=== PATIENT | female | born 1960 | race Caucasian/White ===

== ENCOUNTER → 2017-08-01 | Outpatient (REF) | payer BC ==
[2017-08-01 14:41] LABS: VITAMIN B12 LEVEL 686 PG/ML (247-911)
== END ==
LOC: M LAB REF 13:49
DX: D64.9 Anemia, unspecified (principal)
CPT/HCPCS: 82607

== ENCOUNTER → 2018-02-24 | Outpatient (REF) | payer BC ==
[2018-02-24 19:04] LABS: VITAMIN B12 LEVEL 485 PG/ML (247-911)
== END ==
LOC: M LAB REF 18:29
DX: D64.9 Anemia, unspecified (principal)

== ENCOUNTER 2018-09-29 14:54 | Emergency (ER) | payer BC, SELFPAY ==
[~2018-09-29] VITALS: Ht 165.1 cm; Wt 71.8 kg
[~2018-09-29 14:54] MED LIST: /MESA40TAB PO; ASPI81TA85 PO; CARV6.25 PO; LEVO125T3 PO; LISI2.5T PO; MULTTAB24 PO; NITR0.4D6 SL; PRED1TA PO; TYLE325T5 PO; atorvastatin PO
[2018-09-29] MEDS ORDERED: LOSA50TA88 PO (15:11)
[2018-09-29] MEDS ORDERED: LEVO175T19 PO (15:11)
[2018-09-29] MEDS ORDERED: ATOR80TA59 PO (15:11)
[2018-09-29 15:21] LABS: VENOUS BASE EXCESS 0.3 (-2.0-2.0); VENOUS HCO3 24.5 MEQ/L (23.0-27.0); VENOUS O2 SATURATION 79.6 % (60.0-80.0); VENOUS PARTIAL PRESSURE CO2 38.6 mmHg (38.0-50.0); VENOUS PARTIAL PRESSURE O2 43.2 mmHg (30.0-50.0); VENOUS PH 7.421 UNITS (7.330-7.430); VENOUS STANDARD HCO3 24.3 MEQ/L; VENOUS TOTAL CO2 25.7 MEQ/L (24.0-28.0)
[2018-09-29 15:21] LABS: BASO % 0.7 % (0.0-1.0); EOS # 0.1 10^3/uL (0.0-0.50); EOS % 2.4 % (0.0-3.0); HEMATOCRIT 39.6 % (36.0-47.0); HEMOGLOBIN 13.3 g/dl (12.0-15.5); LYMPH # 1.7 10^3/uL (1.5-4.5); LYMPH % 31.4 % (24.0-44.0); MEAN CORPUSCULAR HGB CONC 33.6 g/dl (32.0-36.5); MEAN CORPUSCULAR VOLUME 101.3 fl (80.0-96.0); MONO # 0.5 10^3/uL (0.0-0.8); MONO % 9.1 % (0.0-5.0); NEUTROPHILS % 56.2 % (36.0-66.0); PLATELET COUNT, AUTOMATED 247 10^3/uL (150-450); RED BLOOD COUNT 3.91 10^6/uL (4.00-5.40); WHITE BLOOD COUNT 5.4 10^3/uL (4.0-10.0)
[2018-09-29 15:54] LABS: ALBUMIN 4.3 GM/DL (3.2-5.2); ALT/SGPT 122 U/L (12-78); BILIRUBIN,DIRECT 0.1 MG/DL (0.0-0.2); BILIRUBIN,TOTAL 0.5 MG/DL (0.2-1.0); BLOOD UREA NITROGEN 15 MG/DL (7-18); CALCIUM LEVEL 9.2 MG/DL (8.5-10.1); CARBON DIOXIDE LEVEL 29 MEQ/L (21-32); CHLORIDE LEVEL 107 MEQ/L (98-107); CPK CREATINE PHOSPHOKINASE 74 U/L (26-192); CREATININE FOR GFR 0.76 MG/DL (0.55-1.30); GLOMERULAR FILTRATION RATE > 60.0 (>51); GLUCOSE, FASTING 113 MG/DL (70-100); INFLUENZA A AMPLIFICATION NEGATIVE (NEGATIVE); INFLUENZA B AMPLIFICATION NEGATIVE (NEGATIVE); MB/CK RELATIVE INDEX 2.03 (< OR =4); NT-PRO BNP 65 PG/ML (<125); POTASSIUM SERUM 3.9 MEQ/L (3.5-5.1); SODIUM LEVEL 142 MEQ/L (136-145); THYROID STIMULATING HORMONE 0.924 uIU/ML (0.358-3.740); TOTAL PROTEIN 8.1 GM/DL (6.4-8.2); TROPONIN I < 0.02 NG/ML (< 0.10)
[2018-09-29] MEDS ORDERED: ISOVUE-370 76% 125ML VIAL (Q9967 PER ML) As Ordered ONE (16:02)
--- NOTE | 2018-09-29 17:16 | REP ---
CHEST: Single view. COMPARISON: 04/07/2014. There is no evidence of acute infiltrate. No pleural effusion is seen. The heart is normal in size. The mediastinal silhouette is unremarkable. The visualized osseous structures are intact. IMPRESSION: No acute pulmonary disease. Electronically Signed by Eran Caicedo MD 10/01/2018 12:23 P
--- NOTE | 2018-09-29 18:33 | REP ---
CT ANGIOGRAM CHEST: TECHNIQUE: Axial contrast enhanced images from the thoracic inlet to the upper abdomen using 100 mL Isovue 370 intravenous contrast material with multiplanar reformations. There is no CT evidence of pulmonary embolism. There is no thoracic aortic aneurysm or dissection. The heart is normal in size. There is no pleural or pericardial effusion. There is no mediastinal, hilar, or chest wall lymphadenopathy. There is a moderate sized hiatal hernia. Mild scattered fibrotic changes are seen particularly in the lower lobes bilaterally. There are mild degenerative changes of the spine. IMPRESSION: No CT evidence of pulmonary embolism. Moderate sized hiatal hernia. Mild bibasilar interstitial fibrosis. Electronically Signed by Eran Caicedo MD 10/01/2018 12:24 P
[2018-09-29 21:48] LABS: CPK CREATINE PHOSPHOKINASE 62 U/L (26-192); TROPONIN I < 0.02 NG/ML (< 0.10)
[2018-09-29 22:00] VITALS: BP 139/93
--- NOTE | 2018-09-30 08:47 | ECGEPIP ---
Stationary ECG Study [facility] - ED Test Date: 2018-09-29 Pat Name: IKER POLLARD Department: Room: - Gender: F Core Filer: : 1960 Requested By: Radha Mclaughlin Order Number: [id number] Reading MD: Jorge Duarte Measurements Intervals [place] Rate: 94 P: 26 [place]: 148 QRS: -16 QRSD: 86 T: -4 QT: 347 QTc: 434 Interpretive Statements SINUS RHYTHM LOW QRS VOLTAGE IN PRECORDIAL LEADS MODERATE VOLTAGE CRITERIA FOR LVH, CONSIDER NORMAL VARIANT POSSIBLE SEPTAL MYOCARDIAL INFARCTION, OF INDETERMINATE AGE SIMILAR TO 04/07/14 Electronically Signed On 09-30-2018 8:47:49 EDT by Jorge Duarte
--- NOTE | 2018-09-30 08:54 | ECGEPIP ---
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
== END 2018-09-29 22:22 | disposition home or self-care (01) ==
LOC: M ED 14:54
DX: R06.00 Dyspnea, unspecified (principal); K44.9 Diaphragmatic hernia without obstruction or gangrene; I25.10 Atherosclerotic heart disease of native coronary artery without angina pectoris; I25.2 Old myocardial infarction; E78.5 Hyperlipidemia, unspecified; E07.9 Disorder of thyroid, unspecified; K51.90 Ulcerative colitis, unspecified, without complications; Z95.5 Presence of coronary angioplasty implant and graft; Z87.891 Personal history of nicotine dependence; Z79.82 Long term (current) use of aspirin; Z79.899 Other long term (current) drug therapy
CPT/HCPCS: 71045; 71275; 80048; 80076; 82550; 82553; 82803; 83605; 83880; 84443; 84484; 85025; 87040; 87502; 93005; 93041; 99285; Q9967

== ENCOUNTER → 2019-02-17 | Outpatient (REF) | payer SELFPAY ==
[~2019-02-17] MED LIST changes: +ATOR80TA59 PO; +LEVO175T19 PO; +LOSA50TA88 PO
== END ==
LOC: M LAB REF 13:30
PROVIDERS: ATTEND Internal Medicine
DX: D52.8 Other folate deficiency anemias (principal)

== ENCOUNTER → 2019-08-13 | Outpatient (REF) | payer SELFPAY ==
[2019-08-13 13:21] LABS: BLOOD UREA NITROGEN 20 MG/DL (7-18); CALCIUM LEVEL 10.1 MG/DL (8.5-10.1); CARBON DIOXIDE LEVEL 25 MEQ/L (21-32); CHLORIDE LEVEL 103 MEQ/L (98-107); CHOLESTEROL LEVEL 213 MG/DL (<200); CHOLESTEROL RISK RATIO 3.736 (<5); CREATININE FOR GFR 0.99 MG/DL (0.55-1.30); GLOMERULAR FILTRATION RATE > 60.0 (>51); GLUCOSE, FASTING 95 MG/DL (70-100); HDL CHOLESTEROL 57 MG/DL (>40); LDL CHOLESTEROL 139 MG/DL (<100); NON-HDL-C 156 MG/DL; POTASSIUM SERUM 4.1 MEQ/L (3.5-5.1); SODIUM LEVEL 139 MEQ/L (136-145); THYROID STIMULATING HORMONE 0.668 uIU/ML (0.358-3.740); TRIGLYCERIDES LEVEL 86 MG/DL (<150)
== END ==
LOC: M LAB REF 12:24
PROVIDERS: ATTEND Internal Medicine
DX: I10 Essential (primary) hypertension (principal); E78.5 Hyperlipidemia, unspecified; E03.9 Hypothyroidism, unspecified

== ENCOUNTER → 2020-01-25 | Outpatient (REF) | payer MEDICAID, SELFPAY ==
[~2020-01-25] MED LIST changes: +ECOT81TA5 PO; +MULTCAP PO; +PRIL20TA2 PO; +SULF1TAB30 PO
== END ==
LOC: M LAB REF 12:03
PROVIDERS: ATTEND Internal Medicine
DX: E03.9 Hypothyroidism, unspecified (principal)

== ENCOUNTER → 2020-03-03 | Outpatient (CLI) | payer OTHER, SELFPAY | LOC: M LABSMTC 11:32 | PROVIDERS: ATTEND Anesthesiology | DX: Z01.818 Encounter for other preprocedural examination (principal); Z53.9 Procedure and treatment not carried out, unspecified reason; Z11.59 Encounter for screening for other viral diseases ==

== ENCOUNTER 2020-03-08 09:07 | Day surgery (SDC) | payer OTHER ==
[~2020-03-08] VITALS: Ht 165.1 cm; Wt 83.0 kg
[2020-03-08] MEDS ORDERED: MIDAZOLAM INJ 2MG/2ML VIAL (J2250 PER 1MG) As Ordered ONE (09:47)
[2020-03-08] MEDS ORDERED: fentaNYL 100 MCG/2 ML INJECTION (J3010) As Ordered ONE (09:48)
[2020-03-08] MEDS ORDERED: LIDOCAINE 2% 100MG/5ML SDV (FOR ANES.) As Ordered ONE (09:50)
[2020-03-08] MEDS ORDERED: ceFAZolin 1GM VIAL (J0690 PER 500MG) As Ordered ONE (09:53)
[2020-03-08] MEDS ORDERED: BUPIVACAINE/EPIN 0.25% 30 ML VIAL As Ordered ONE (10:53)
[2020-03-08] MEDS ORDERED: ONDANSETRON 4MG/2ML VIAL As Ordered ONE (11:46)
[2020-03-08] MEDS ORDERED: propofoL 200 MG/20 ML VIAL As Ordered ONE (11:48)
[2020-03-08 12:20] VITALS: BP 123/79
--- NOTE | 2020-04-05 14:33 | ECGEPIP ---
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
--- NOTE | 2020-05-13 14:07 | RO ---
DATE OF OPERATION: 03/08/2020 PREOPERATIVE DIAGNOSIS: Lipoma, back. POSTOPERATIVE DIAGNOSIS: Lipoma, back (8 x 6 CM). PROCEDURE: Excision of lipoma/subcutaneous mass, back/trunk. SURGEON: Larry Chris MD SEWER PIPE OFFBEARER: ANESTHESIA: IV sedation plus local. ESTIMATED BLOOD LOSS: Minimal. FLUIDS: Crystalloid. BRIEF PROCEDURE SUMMARY: The patient was brought to the operating room and was given IV sedation, and was prepped and draped in the usual sterile fashion. Local lidocaine mixed with epinephrine as well as Marcaine was infiltrated into the skin and subcutaneous tissues surrounding the lipomatous lesion. A transverse incision was made over the top of this lesion and a combination of blunt and sharp dissection as well as electrocautery was used to dissect down to the lipomatous lesion. The lipomatous lesion was from the surrounding tissues using a combination of blunt dissection as well as sharp dissection and electrocautery on some of the small bridging vessels, and eventually this was removed in its entirety. The subcutaneous tissue then was brought together with 2-0 Vicryl. 3-0 Vicryl was used to approximate dermis, 4-0 Vicryl was used to approximate the skin. Steri-Strips and a dry, sterile dressing were applied. The patient was awakened from her sedation and brought to the recovery room awake and alert, and hemodynamically stable. Sponge and needle counts correct x2. MTDD
== END 2020-03-08 12:53 | disposition home or self-care (01) ==
LOC: M SDC 09:07
PROVIDERS: ATTEND Surgery
DX: D17.1 Benign lipomatous neoplasm of skin and subcutaneous tissue of trunk (principal); I10 Essential (primary) hypertension; I25.10 Atherosclerotic heart disease of native coronary artery without angina pectoris; Z98.61 Coronary angioplasty status; I25.2 Old myocardial infarction; E03.9 Hypothyroidism, unspecified; K21.9 Gastro-esophageal reflux disease without esophagitis; Z79.899 Other long term (current) drug therapy
CPT/HCPCS: 11406; 88304; 93005; J2250; J2405; J3010

== ENCOUNTER → 2020-05-19 | Outpatient (CLI) | payer OTHER | LOC: M LABSMTC 11:12 | PROVIDERS: ATTEND Anesthesiology | DX: Z01.812 Encounter for preprocedural laboratory examination (principal); Z20.828 Contact with and (suspected) exposure to other viral communicable diseases | CPT/HCPCS: C9803; U0003 ==

== ENCOUNTER 2020-05-24 08:50 | Day surgery (SDC) | payer OTHER ==
[~2020-05-24] VITALS: Ht 162.6 cm; Wt 80.7 kg
[~2020-05-24 08:50] MED LIST changes: +LIDOCAINE 2% 100MG/5ML SDV (FOR ANES.) As Ordered ONE; +NS 1,000 ML IV ONE; +propofoL 200 MG/20 ML VIAL As Ordered ONE
--- NOTE | 2020-05-24 10:58 | ROOR ---
Patient Name: Paloma Johnson Procedure Date: 05/24/2020 10:07 AM Date of : 1960 Age: 59 Room: [facility] Gender: Female Note Status: Finalized Procedure: Colonoscopy Indications: Disease activity assessment of left-sided chronic ulcerative colitis, Assess therapeutic response to therapy of left-sided chronic ulcerative colitis Providers: Sher Myles MD Referring MD: Roberta Lu DO Requesting Provider: Medicines: Monitored Anesthesia Care Complications: No immediate complications. Procedure: Pre-Anesthesia Assessment: - Prior to the procedure, a History and Physical was performed, and patient medications and allergies were reviewed. The patient is competent. The risks and benefits of the procedure and the sedation options and risks were discussed with the patient. All questions were answered and informed consent was obtained. Patient identification and proposed procedure were verified by the physician, the nurse and the anesthesiologist in the procedure room. Mental Status Examination: alert and oriented. Airway Examination: normal oropharyngeal airway and neck mobility. Respiratory Examination: clear to auscultation. CV Examination: normal. Prophylactic Antibiotics: The patient does not require prophylactic antibiotics. Prior Anticoagulants: The patient has taken no previous anticoagulant or antiplatelet agents. ASA Grade Assessment: II - A patient with mild systemic disease. After reviewing the risks and benefits, the patient was deemed in satisfactory condition to undergo the procedure. The anesthesia plan was to use monitored anesthesia care (MAC). Immediately prior to administration of medications, the patient was re-assessed for adequacy to receive sedatives. The heart rate, respiratory rate, oxygen saturations, blood pressure, adequacy of pulmonary ventilation, and response to care were monitored throughout the procedure. The physical status of the patient was re-assessed after the procedure. The Colonoscope was introduced through the anus and advanced to the terminal ileum, with identification of the appendiceal orifice and IC valve. The colonoscopy was performed without difficulty. The patient tolerated the procedure well. The quality of the bowel preparation was good. The terminal ileum, ileocecal valve, appendiceal orifice, and rectum were photographed. Scope insertion time was 3 minutes. Scope withdrawal time was 11 minutes. The total duration of the procedure was 14 minutes. Findings: The perianal and digital rectal examinations were normal. The terminal ileum appeared normal. Three sessile polyps were found in the transverse colon and ascending colon. The polyps were 3 to 5 mm in size. These polyps were removed with a cold biopsy forceps. Resection and retrieval were complete. Verification of patient identification for the specimen was done by the physician and nurse using the patient's name, date and medical record number. Estimated blood loss was minimal. A continuous area of nonbleeding ulcerated mucosa with stigmata of recent bleeding was present from rectum to transverse colon. Eight biopsies were obtained with cold forceps for histology, ulcerative colitis surveillance and diagnostic purposes in the right colon, as well as eight biopsies in the left colon. Retroflexion in the rectum was not performed due to anatomy. Impression: - The examined portion of the ileum was normal. - Three 3 to 5 mm polyps in the transverse colon and in the ascending colon, removed with a cold biopsy forceps. Resected and retrieved. - Mucosal ulceration. - Biopsies performed in the right colon and in the left colon. Recommendation: - Patient has a contact number available for emergencies. The signs and symptoms of potential delayed complications were discussed with the patient. Return to normal activities tomorrow. Written discharge instructions were provided to the patient. - High fiber diet. - Continue present medications. - Await pathology results. - Repeat colonoscopy in 1 year to assess disease activity and to evaluate the response to therapy. - Return to GI clinic in [facility] (address [address], [address], [place], [facility]) in 4 -- 6 weeks. Please call GI clinic @ [phone] for apppointment date and time. - Return to primary care physician. Sher Myles MD Sher Myles MD 05/24/2020 10:57:38 AM Electronically signed by Sher Myles MD Number of Addenda: 0 Note Initiated On: 05/24/2020 10:07 AM Estimated Blood Loss: Estimated blood loss was minimal.
[2020-05-24 11:10] VITALS: BP 179/102
== END 2020-05-24 11:15 | disposition home or self-care (01) ==
LOC: M OPP 08:50
PROVIDERS: ATTEND Internal Medicine Gastroenterology
DX: K63.5 Polyp of colon (principal); K51.50 Left sided colitis without complications; Z09 Encounter for follow-up examination after completed treatment for conditions other than malignant neoplasm; I25.2 Old myocardial infarction; Z79.82 Long term (current) use of aspirin; Z79.899 Other long term (current) drug therapy; Z80.0 Family history of malignant neoplasm of digestive organs; Z87.891 Personal history of nicotine dependence

== ENCOUNTER → 2020-07-11 | Outpatient (CLI) | payer OTHER ==
[~2020-07-11] MED LIST changes: -LIDOCAINE 2% 100MG/5ML SDV (FOR ANES.) As Ordered ONE; -NS 1,000 ML IV ONE; -propofoL 200 MG/20 ML VIAL As Ordered ONE
[2020-07-11 13:33] LABS: BASO % 0.7 % (0.0-1.0); EOS # 0.2 10^3/uL (0.0-0.5); EOS % 3.1 % (0.0-3.0); HEMATOCRIT 36.4 % (36.0-47.0); HEMOGLOBIN 12.3 g/dl (12.0-15.5); LYMPH # 1.4 10^3/uL (1.5-5.0); LYMPH % 23.1 % (24.0-44.0); MEAN CORPUSCULAR HEMOGLOBIN 36.4 pg (27.0-33.0); MEAN CORPUSCULAR HGB CONC 33.8 g/dl (32.0-36.5); MEAN CORPUSCULAR VOLUME 107.7 fl (80.0-96.0); MONO # 0.3 10^3/uL (0.0-0.8); MONO % 5.4 % (0.0-5.0); NEUTROPHILS # 4.1 10^3/uL (1.5-8.5); NEUTROPHILS % 67.4 % (36.0-66.0); PLATELET COUNT, AUTOMATED 290 10^3/uL (150-450); RED BLOOD COUNT 3.38 10^6/uL (4.00-5.40); WHITE BLOOD COUNT 6.1 10^3/uL (4.0-10.0)
[2020-07-11 13:53] LABS: ERYTHROCYTE SEDIMENTATION RATE 29 mm/hr (0-30)
[2020-07-11 14:08] LABS: ALT/SGPT 89 U/L (12-78); BILIRUBIN,DIRECT 0.2 MG/DL (0.0-0.2); BILIRUBIN,TOTAL 0.6 MG/DL (0.2-1.0); BLOOD UREA NITROGEN 20 MG/DL (7-18); CALCIUM LEVEL 9.6 MG/DL (8.5-10.1); CARBON DIOXIDE LEVEL 26 MEQ/L (21-32); CHLORIDE LEVEL 106 MEQ/L (98-107); GLOMERULAR FILTRATION RATE > 60.0 (>51); GLUCOSE, FASTING 90 MG/DL (70-100); POTASSIUM SERUM 4.2 MEQ/L (3.5-5.1); SODIUM LEVEL 139 MEQ/L (136-145); TOTAL PROTEIN 7.7 GM/DL (6.4-8.2)
[2020-07-11 14:23] LABS: HEPATITIS B SURFACE ANTIGEN NEGATIVE (NEGATIVE)
[2020-07-11 14:51] LABS: HEPATITIS C VIRUS ABY INDEX 0.2 INDEX (<0.8)
[2020-07-13 16:16] LABS: ANCA-ATYPICAL <1:20 titer (Neg:<1:20); ANTI-SACCHAROMYCES CEREV. IgA <20.0 Units (0.0-24.9); ANTI-SACCHAROMYCES CEREV. IgG <20.0 Units (0.0-24.9); CYTOPLASMIC NEUTROP AB ANCA-C <1:20 titer (Neg:<1:20); HEPATITIS B CORE ANTIBODY IGG Negative (Negative); PERINUCLEAR AB ANCA-P <1:20 titer (Neg:<1:20)
== END ==
LOC: M LAB 12:38
PROVIDERS: ATTEND Internal Medicine Gastroenterology
DX: K51.911 Ulcerative colitis, unspecified with rectal bleeding (principal)

== ENCOUNTER → 2020-07-18 | Outpatient (REF) | payer OTHER | LOC: M LAB REF 13:26 | PROVIDERS: ATTEND Internal Medicine Gastroenterology | DX: K51.911 Ulcerative colitis, unspecified with rectal bleeding (principal) ==

== ENCOUNTER → 2020-08-24 | Outpatient (REF) | payer OTHER | LOC: M LAB REF 15:16 | PROVIDERS: ATTEND Internal Medicine | DX: D64.9 Anemia, unspecified (principal) ==

== ENCOUNTER → 2020-10-12 | Outpatient (REF) | payer OTHER | LOC: M SFHCWAGY 13:55 | PROVIDERS: ATTEND Advanced Practice Midwife | DX: Z12.4 Encounter for screening for malignant neoplasm of cervix (principal); Z01.419 Encounter for gynecological examination (general) (routine) without abnormal findings; Z77.9 Other contact with and (suspected) exposures hazardous to health ==

== ENCOUNTER → 2020-10-20 | Outpatient (CLI) | payer OTHER ==
--- NOTE | 2020-10-20 10:26 | REP ---
INDICATION: Z12.31 SCREENING MAMMO. COMPARISON: None. TECHNIQUE: MLO and CC views bilateral breasts with tomosynthesis. FINDINGS: Moderate fibroglandular tissue is seen bilaterally. A smoothly marginated 1 cm nodule is seen at the 6 o'clock position of the left breast. I see no other evidence of mass or architectural distortion. No clustered microcalcifications are seen. The Volpara volumetric breast density pattern is B. IMPRESSION: BIRADS/ACR category 0, incomplete. There is a smoothly marginated 1 cm nodule at 6 o'clock left breast. Recommend spot compression views and ultrasound to further evaluate. This patient's Tyrer-Cuzick lifetime breast cancer risk assessment score is 14.8%. This mammogram was interpreted with the aid of an FDA-approved computer-aided detection system. The patient states she had a clinical breast exam in September 2020. The patient letter being requested is M0. RECOMMENDATION: Recommend spot compression views and ultrasound left breast as discussed above. <Electronically signed by Eran Caicedo > 10/20/20 102
== END ==
LOC: M WHC 09:01
PROVIDERS: ATTEND Advanced Practice Midwife
DX: Z12.31 Encounter for screening mammogram for malignant neoplasm of breast (principal); R92.8 Other abnormal and inconclusive findings on diagnostic imaging of breast

== ENCOUNTER → 2020-10-26 | Outpatient (CLI) | payer OTHER ==
--- NOTE | 2020-10-26 13:24 | REP ---
INDICATION: ADDITIONAL VIEWS LT BREAST; ADDITIONAL VIEW LT BREAST. Comparison mammography 20 October 2020 was BI-RADS category 0, incomplete, due to a smoothly marginated 1 cm nodule seen at 6 o'clock position in the left breast. Diagnostic imaging was recommended. COMPARISON: Comparison mammography 20 October 2020. TECHNIQUE: Magnified focal spot-compression CC, mL, and MLO views of the left breast are obtained. Targeted left breast sonography is performed. This mammogram was interpreted with the aid of an FDA-approved computer-aided detection system. FINDINGS: On mammography, magnified focal spot-compression images demonstrate that the well marginated 10 mm nodule persists inferiorly in the left breast at approximately the 7 o'clock position. Fibroglandular elements are seen. No other significant mammographic finding. The Volpara volumetric breast density pattern is b. Targeted ultrasound: Targeted left breast sonography is performed. The left breast is scanned from the 5:00 to 9:00 positions. Heterogeneous fibroglandular background echotexture is seen. There is a 9 mm sonographically simple cyst in the 6 o'clock position which is felt to account for the mammographic opacity. This is located 5.4 cm from nipple. No other significant sonographic finding. IMPRESSION: BIRADS/ACR category 2 benign left breast mammographic and sonographic findings. Simple cyst seen at 6 o'clock. This patient's Tyrer-Cuzick lifetime breast cancer risk assessment score is 14.8%. RECOMMENDATION: Repeat screening mammography recommended 1 year (for women over 40). The patient letter being requested is M1. <Electronically signed by Ba Nath > 10/26/20 0649
== END ==
LOC: M WHC 12:03
PROVIDERS: ATTEND Advanced Practice Midwife
DX: Z12.31 Encounter for screening mammogram for malignant neoplasm of breast (principal)

== ENCOUNTER 2021-05-05 12:30 | Inpatient (IN) | payer OTHER ==
[~2021-05-05] VITALS: Ht 165.1 cm; Wt 80.7 kg
[2021-05-05] MEDS ORDERED: HYDR12CA PO (12:45)
[2021-05-05 13:16] LABS: BASO % 0.1 % (0.0-1.0); HEMATOCRIT 37.3 % (36.0-47.0); HEMOGLOBIN 12.4 g/dl (12.0-15.5); LYMPH # 0.6 10^3/uL (1.5-5.0); MEAN CORPUSCULAR HEMOGLOBIN 34.2 pg (27.0-33.0); MEAN CORPUSCULAR HGB CONC 33.2 g/dl (32.0-36.5); MEAN CORPUSCULAR VOLUME 102.8 fl (80.0-96.0); MONO # 0.3 10^3/uL (0.0-0.8); NEUTROPHILS # 5.8 10^3/uL (1.5-8.5); NEUTROPHILS % 86.6 % (36.0-66.0); PLATELET COUNT, AUTOMATED 240 10^3/uL (150-450); RED BLOOD COUNT 3.63 10^6/uL (4.00-5.40); WHITE BLOOD COUNT 6.7 10^3/uL (4.0-10.0)
--- OUTSIDE RECORDS SUMMARY | 2021-05-05 13:45 | CCD | Continuity of Care Document ---
Author Author Paloma SABILLON Organization Unknown Address [address] [facility] [address] [place] [address] Phone [phone] Care Team Providers Care Block Greaser Name Role Phone Roberta Sabillon DO AUTM Unavailable Jhon Chairez MD AUTM [phone] Problems Active Problems Provider Date Old myocardial infarction Roberta Sabillon DO Onset: 013 Ulcerative colitis Roberta Sabillon DO Onset: 12/09/2012 Social History Type Date Description Comments Sex Unknown ETOH Use Occasionally consumes alcohol Tobacco Use Start: Unknown End: Unknown Patient is a former smoker 04/2010 QUIT Allergies, Adverse Reactions, Alerts Description No Known Drug Allergies Medications Active Medications SIG Qnty Indications Ordering Provide r Date Lialda 1.2gm Tablets 3 by mouth every day 120tabs Roberta Sabillon DO 01/25/2020 Sulfasalazine 500mg Tablets 1 by mouth twice a day then increase to 2 by mouth twice a day after one week. 120tabs Roberta Sabillon DO 01/25/2020 Atorvastatin Calcium 80mg Tablets Take One Tablet By Mouth Every Day 90tabs Roberta Sabillon DO 2019 Losartan Potassium 100mg Tablets Take One Tablet By Mouth Every Day 90tabs Roberta Sabillon DO 2019 Hydrochlorothiazide 12.5mg Capsule s Take One Capsule By Mouth Every Day 90caps Roberta Sabillon DO 0 08/26/2019 Levothyroxine Sodium 175mcg Tablet s Take One Tablet By Mouth Every Day 30tabs Jonah Navarrete MD 06/26/2018 Vitamin B Complex Tablets 1 by mouth every day Roberta Sabillon DO 12/02/2014 Multivitamins Capsules 1 po qd Roberta Sabillon DO 12/30/[address] 1 po qd Roberta Sabillon,DO 12/09/2012 Carvedilol 6.25mg Tablets Take One Tablet By Mouth Twice A Day 60tabs Roberta Sabillon,DO Budesonide 3mg Caps DR Part 3 tab daily x 4 weeks then take 2 tablets daily x 4 weks then one daily x 4 weeks Unknown Immunizations Description No Information Available Vital Signs Date Vital Result Comment 03/09/2021 8:44am BP Systolic 118 mmHg BP Diastolic 80 mmHg Heart Rate 94 /min Height 65.25 inches 5'5.25" Weight 184.00 lb O2 % BldC Oximetry 98 % BMI (Body Mass Index) 30.4 kg/m2 08/24/2020 8:05am BP Systolic 124 mmHg BP Diastolic 78 mmHg Heart Rate 88 /min Height 65.25 inches 5'5.25" Weight 181.00 lb BMI (Body Mass Index) 29.9 kg/m2 Results Test Acquired Date Facility Test Result H/L Range Note Laboratory test finding 03/09/2021 [facility] [employer] [facility] Helper: [place] [address] [phone] TSH <pending> Procedures Date Code Description Status 11/02/2020 [id number] Diabetic Retinal Eye Exam Comple nyasia 12/10/2012 [id number] Colonoscopy Completed 04/05/2005 [id number] Mammogram Completed Medical Devices Description No Information Available Encounters Description No Information Available Assessments Description No Information Available Plan of Treatment No Information Available Functional Status Description No Information Available Mental Status Description No Information Available Referrals Description No Information Available
--- OUTSIDE RECORDS SUMMARY | 2021-05-05 13:45 | CCD ---
Author Author [facility] Organization [facility] Address Unknown Phone Unavailable Care Team Providers Care Panel Beater Name Role Phone Sammi Haddad BINDING DYER Unavailable Unavailable Boo, Sammi Calhoun BINDING DYER Unavailable Unavailable Martin, Sammi Lj BINDING DYER Unavailable Unavailable Martin, Sammi Lj BINDING DYER Unavailable Unavailable Boo, Sammi Lj BINDING DYER Unavailable Unavailable Martin, Sammi Lj BINDING DYER Unavailable Unavailable Martin, Sammi Lj BINDING DYER Unavailable Unavailable Boo, Smami Lj BINDING DYER Unavailable Unavailable Boo, Sammi Lj BINDING DYER Unavailable Unavailable Boo, Sammi Lj BINDING DYER Unavailable Unavailable Martin, Sammi Lj BINDING DYER Unavailable Unavailable Martin, Sammi Lj BINDING DYER Unavailable Unavailable Martin, Sammi Lj BINDING DYER Unavailable Unavailable Martin, Sammi Lj BINDING DYER Unavailable Unavailable Feola, T Divya PA Unavailable Unavailable Feola, T Divya PA Unavailable Unavailable Feola, T Divya PA Unavailable Unavailable Feola, T Divya PA Unavailable Unavailable Feola, T Divya PA Unavailable Unavailable Feola, T Divya PA Unavailable Unavailable Feola, T Divya PA Unavailable Unavailable Feola, T Divya PA Unavailable Unavailable Feola, T Divya PA Unavailable Unavailable Feola, T Divya PA Unavailable Unavailable Feola, T Divya PA Unavailable Unavailable Feola, T Divya PA Unavailable Unavailable Feola, T Divya PA Unavailable Unavailable Feola, T Divya PA Unavailable Unavailable Feola, T Divya PA Unavailable Unavailable Feola, T Divya PA Unavailable Unavailable Feola, T Divya PA Unavailable Unavailable Feola, T Divya PA Unavailable Unavailable Feola, T Divya PA Unavailable Unavailable Feola, T Divya PA Unavailable Unavailable Feola, T Divya PA Unavailable Unavailable Feola, T Divya PA Unavailable Unavailable Feola, T Divya PA Unavailable Unavailable Feola, T Divya PA Unavailable Unavailable Feola, T Divya PA Unavailable Unavailable Feola, T Divya PA Unavailable Unavailable Feola, T Divya PA Unavailable Unavailable Feola, T Divya PA Unavailable Unavailable Feola, T Divya PA Unavailable Unavailable Feola, T Divya PA Unavailable Unavailable Feola, T Divya PA Unavailable Unavailable Feola, T Divya PA Unavailable Unavailable Feola, T Divya PA Unavailable Unavailable Feola, T Divya PA Unavailable Unavailable Feola, T Divya PA Unavailable Unavailable Feola, T Divya PA Unavailable Unavailable Feola, T Divya PA Unavailable Unavailable Feola, T Divya PA Unavailable Unavailable Feola, T Divya PA Unavailable Unavailable Feola, T Divya PA Unavailable Unavailable Feola, T Divya PA Unavailable Unavailable Tabitha, Roberta DO Unavailable Unavailable Tabitha, Roberta DO Unavailable Unavailable Tabitha, Roberta DO Unavailable Unavailable Tabitha, Roberta DO Unavailable Unavailable Tabitha, Roberta DO Unavailable Unavailable Tabitha, Roberta DO Unavailable Unavailable Tabitha, Roberta DO Unavailable Unavailable Tabitha, Roberta DO Unavailable Unavailable Tabitha, Roberta DO Unavailable Unavailable Tabitha, Roberta DO Unavailable Unavailable Tabitha, Roberta DO Unavailable Unavailable Tabitha, Roberta DO Unavailable Unavailable Tabitha, Roberta DO Unavailable Unavailable Tabitha, Roberta DO Unavailable Unavailable Tabitha, Roberta DO Unavailable Unavailable Tabitha, Roberta DO Unavailable Unavailable Tabitha, Roberta DO Unavailable Unavailable Tabitha, Roberta DO Unavailable Unavailable Tabitha, Roberta DO Unavailable Unavailable Tabitha, Roberta DO Unavailable Unavailable Tabitha, Roberta DO Unavailable Unavailable Tabitha, Roberta DO Unavailable Unavailable Tabitha, Roberta DO Unavailable Unavailable Tabitha, Roberta DO Unavailable Unavailable Tabitha, Roberta DO Unavailable Unavailable Tabitha, Roberta DO Unavailable Unavailable Tabitha, Roberta DO Unavailable Unavailable Tabitha, Roberta DO Unavailable Unavailable Tabitha, Roberta DO Unavailable Unavailable Tabitha, Roberta DO Unavailable Unavailable Tabitha, Roberta DO Unavailable Unavailable Tabitha, Roberta DO Unavailable Unavailable Tabitha, Roberta DO Unavailable Unavailable Tabitha, Roberta DO Unavailable Unavailable Tabitha, Roberta DO Unavailable Unavailable Tabitha, Roberta DO Unavailable Unavailable Tabitha, Roberta DO Unavailable Unavailable Tabitha, Roberta DO Unavailable Unavailable Tabitha, Roberta DO Unavailable Unavailable Tabitha, Roberta DO Unavailable Unavailable Tabitha, Roberta DO Unavailable Unavailable Tabitha, Roberta DO Unavailable Unavailable Tabitha, Roberta DO Unavailable Unavailable Tabitha, Roberta DO Unavailable Unavailable Tabitha, Roberta DO Unavailable Unavailable Tabitha, Roberta DO Unavailable Unavailable Tabitha, Roberta DO Unavailable Unavailable Atbitha, Roberta DO Unavailable Unavailable Tabitha, Roberta DO Unavailable Unavailable Tabitha, Roberta DO Unavailable Unavailable Tabitha, Roberta DO Unavailable Unavailable Tabitha, Roberta DO Unavailable Unavailable Tabitha, Roberta DO Unavailable Unavailable Tabitha, Roberta DO Unavailable Unavailable Tabitha, Roberta DO Unavailable Unavailable Tabitha, Roberta DO Unavailable Unavailable Tabitha, Roberta DO Unavailable Unavailable Tabitha, Roberta DO Unavailable Unavailable Tabitha, Roberta DO Unavailable Unavailable Tabitha, Roberta DO Unavailable Unavailable Tabitha, Roberta DO Unavailable Unavailable Tabitha, Roberta DO Unavailable Unavailable Tabitha, Roberta DO Unavailable Unavailable Tabitha, Roberta DO Unavailable Unavailable Tabitha, Orberta DO Unavailable Unavailable Tabitha, Roberta DO Unavailable Unavailable Tabitha, Roberta DO Unavailable Unavailable Tabitha, Roberta DO Unavailable Unavailable Tabitha, Roberta DO Unavailable Unavailable Tabitha, Roberta DO Unavailable Unavailable Tabitha, Roberta DO Unavailable Unavailable Tabitha, Roberta DO Unavailable Unavailable Tabitha, Roberta DO Unavailable Unavailable Tabitha, Roberta DO Unavailable Unavailable Jame, N Trip METAL FABRICATOR WELDER Unavailable Unavailable Jame, N Trip METAL FABRICATOR WELDER Unavailable Unavailable Seabeck, N Trip METAL FABRICATOR WELDER Unavailable Unavailable [place]abeck, N Trip METAL FABRICATOR WELDER Unavailable Unavailable [place]abeck, N Trip METAL FABRICATOR WELDER Unavailable Unavailable Jame, N Trip METAL FABRICATOR WELDER Unavailable Unavailable [place]abeck, N Trip METAL FABRICATOR WELDER Unavailable Unavailable Jame, N Trip METAL FABRICATOR WELDER Unavailable Unavailable [place]abe[place], N Trip METAL FABRICATOR WELDER Unavailable Unavailable Jame, N Trip METAL FABRICATOR WELDER Unavailable Unavailable Jame, N Trip METAL FABRICATOR WELDER Unavailable Unavailable [place]abeck, N Trip METAL FABRICATOR WELDER Unavailable Unavailable [place], N Trip METAL FABRICATOR WELDER Unavailable Unavailable Jame, N Trip METAL FABRICATOR WELDER Unavailable Unavailable Jame, N Trip METAL FABRICATOR WELDER Unavailable Unavailable Jame, N Trip METAL FABRICATOR WELDER Unavailable Unavailable [place]abeck, N Trip METAL FABRICATOR WELDER Unavailable Unavailable [place], N Trip METAL FABRICATOR WELDER Unavailable Unavailable Jame, N Trip METAL FABRICATOR WELDER Unavailable Unavailable Jame, N Trip METAL FABRICATOR WELDER Unavailable Unavailable [place], N Trip METAL FABRICATOR WELDER Unavailable Unavailable Jame, N Trip METAL FABRICATOR WELDER Unavailable Unavailable [place], N Trip METAL FABRICATOR WELDER Unavailable Unavailable Jame, N Trip METAL FABRICATOR WELDER Unavailable Unavailable [place], N Trip METAL FABRICATOR WELDER Unavailable Unavailable Jame, N Trip METAL FABRICATOR WELDER Unavailable Unavailable [place]abe[place], N Trip METAL FABRICATOR WELDER Unavailable Unavailable Jame, N Trip METAL FABRICATOR WELDER Unavailable Unavailable [place]abeck, N Trip METAL FABRICATOR WELDER Unavailable Unavailable [place]abe[place], N Trip METAL FABRICATOR WELDER Unavailable Unavailable [place], N Trip METAL FABRICATOR WELDER Unavailable Unavailable [place], N Trip METAL FABRICATOR WELDER Unavailable Unavailable [place], N Trip METAL FABRICATOR WELDER Unavailable Unavailable Cliff AMAYA MD Unavailable Unavailable Cliff AMAYA MD Unavailable Unavailable Cliff AMAYA MD Unavailable Unavailable Cliff AMAYA MD Unavailable Unavailable Cliff AMAYA MD Unavailable Unavailable Cliff AMAYA MD Unavailable Unavailable Cliff AMAYA MD Unavailable Unavailable Cliff AMAYA MD Unavailable Unavailable Cliff AMAYA MD Unavailable Unavailable Cliff AMAYA MD Unavailable Unavailable Cliff AMAYA MD Unavailable Unavailable Cliff AMAYA MD Unavailable Unavailable Cliff AMAYA MD Unavailable Unavailable Cliff AMAYA MD Unavailable Unavailable Cliff AMAYA MD Unavailable Unavailable Cliff AMAYA MD Unavailable Unavailable Cliff AMAYA MD Unavailable Unavailable lCiff AMAYA MD Unavailable Unavailable Cliff AMAYA MD Unavailable Unavailable Cliff AMAYA MD Unavailable Unavailable Cliff AMAYA MD Unavailable Unavailable Cliff AMAYA MD Unavailable Unavailable Cliff AMAYA MD Unavailable Unavailable Cliff AMAYA MD Unavailable Unavailable Cliff AMAYA MD Unavailable Unavailable Cliff AMAYA MD Unavailable Unavailable Clfif AMAYA MD Unavailable Unavailable Cliff AMAYA MD Unavailable Unavailable Cliff AMAYA MD Unavailable Unavailable Cliff AMAYA MD Unavailable Unavailable Cliff AMAYA MD Unavailable Unavailable Cliff AMAYA MD Unavailable Unavailable Cliff AMAYA MD Unavailable Unavailable Re-disclosure Warning The records that you are about to access may contain information from federally-assisted alcohol or drug abuse programs. If such information is present, then the following federally mandated warning applies: This information has been disclosed to you from records protected by federal confidentiality rules (42 CFR part 2). The federal rules prohibit you from making any further disclosure of this information unless further disclosure is expressly permitted by the written consent of the person to whom it pertains or as otherwise permitted by 42 CFR part 2. A general authorization for the release of medical or other information is NOT sufficient for this purpose. The Federal rules restrict any use of the information to criminally investigate or prosecute any alcohol or drug abuse patient.The records that you are about to access may contain highly sensitive health information, the redisclosure of which is protected by Article 27-F of the [facility] Public Health law. If you continue you may have access to information: Regarding HIV / AIDS; Provided by facilities licensed or operated by the [facility] Office of Mental Health; or Provided by the [facility] Office for People With Developmental Disabilities. If such information is present, then the following [facility] mandated warning applies: This information has been disclosed to you from confidential records which are protected by state law. State law prohibits you from making any further disclosure of this information without the specific written consent of the person to whom it pertains, or as otherwise permitted by law. Any unauthorized further disclosure in violation of state law may result in a fine or long term sentence or both. A general authorization for the release of medical or other information is NOT sufficient authorization for further disc losure. Family History Family Member Name Family Member Gender Family Member Status Date o f Status Description Data Source(s) Unknown Unknown Problem [facility] ([facility], [facility]) Unknown Unknown Encounters Encounter Providers Location Date Indications Data Source(s ) Outpatient Attender: Divya REYES 021 11:53:12 AM EDT - 05/01/2021 12:47:27 PM EDT [facility] ([facility] ) Outpatient Attender: Roberta Christianson 03/09 09:00:00 AM EDT MEDENT ([facility] ) Outpatient Attender: Trip Kilgore NP [email or web address] [email or web address] 12:00:00 AM EDT - 10/24/2020 02:35:08 PM EDT [facility] Outpatient Attender: Roberta Lu DO Landon Hope 08/24 07:00:00 AM EST MEDENT ([facility] ) Outpatient Attender: Trip Kilgore NP [email or web address] 12:00:00 AM EST - 06/13/2020 10:48:55 AM EST [facility] Outpatient Attender: CAROL Duque/Mady/Yan ochoa/Amrita 03/22/2020 08:30:00 AM EDT MEDENT ([facility]) Office Visit Attender: Lj Duque/Mady/Sumit/Malik jordan 03/17/2020 01:30:00 PM EDT MED[facility] ([facility]) Medications Medication Brand Name Start Date Product Form Dose Route Admi nistrative Instructions Pharmacy Instructions Status Indications Reaction Description Data Source(s) Hydrochlorothiazide 12.5 MG Oral Capsule hydrochlorothiazide (MICROZIDE) 12.5 MG capsule hydrochlorothiazide (MICROZIDE) 12.5 MG capsule 2020 12:00:00 AM EDT active [facility] Sulfasalazine 500 MG Oral Tablet sulfaSALAzine (AZULFI DINE) 500 MG tablet sulfaSALAzine (AZULFIDINE) 500 MG tablet 09/21/2020 12:00:00 AM EST active [facility] Budesonide 3 MG Delayed Release Oral Cap tosin budesonide (ENTOCORT EC) 3 MG 24 hr capsule budesonide (ENTOCORT EC) 3 MG 24 hr capsule 09/03/2020 12:00 :00 AM EST active [facility] Budesonide 3 MG Delayed Release Oral Capsule Budesonide 07/25/2020 12:00:00 AM EST ORAL active MEDENT ([facility], ) Losartan Potassium 100 MG Oral Tablet losartan (COZAAR ) 100 MG tablet losartan (COZAAR) 100 MG tablet 07/23/2020 12:00:00 AM EST active [facility] Clenpiq Clenpiq 05/20/2020 12:00:00 AM EST complet ed MEDENT ([facility], ) Bisacodyl 5 MG Delayed Release Oral Tablet [Dulcolax] Dulcol ax 05/20/2020 12:00:00 AM EST completed MED[facility] ([facility], ) POLYETHYLENE GLYCOL 3350 105 MG/ML / Pot assium Chloride 0.69545 MEQ/ML / Sodium Bicarbonate 0.017 MEQ/ML / Sodium Chloride 0.0479 MEQ/ML Oral Solution [GaviLyte-N] Gavilyte-N With Flavor Pack 05/20/2020 12:00:00 AM EST completed MEDENT ([facility], ) Budesonide 3 MG Delayed Release Oral Capsule Budesonide 03/22/2020 12:00:00 AM EDT ORAL completed [facility] ([facility], ) Hydrochlorothiazide 12.5 MG / Losartan P otassium 100 MG Oral Tablet losartan- hydrochlorothiazide (HYZAAR) 100-12.5 MG per tablet losartan-hydrochlorothiazide (HYZAAR) 100-12.5 MG per tablet 07/18/2012 12:00:00 AM EST aborted daily [facility] Insurance Providers Payer name Policy type / Coverage type Policy ID Covered alliance party ID Covered alliance party's relationship to priest Policy Priest Plan Information [employer] Commercial [id number] Family Dependent 802 [facility] [employer] Medigap Part B [id number] Family Dependent [id number] [employer] Commercial [id number] Self 802 [facility] [employer] Medigap Part B [id number] Self [id number] [facility] MEDICAID [id number] xxxxxxxxx [id number] [facility] MEDICAID [id number] Rafaela [id number] [employer] [id number] Self [id number] BC[place] OF [place] 306/[id number] SP [id number] BS [place] Commercial [id number] Self [id number] BS [place] [employer] Commercial [id number] 00 [id number] Self [id number] BS [place] [employer] Commercial [id number] 00 [id number] Self [id number] BS [place] [employer] Commercial [id number] Self [id number] BS [place] Misoca [id number] Self [id number] BS [place] [employer] Commercial [id number] 00 [id number] Self [id number] 00 BS [place] [employer] Commercial [id number] 00 [id number] Self [id number] 00 [employer] BCBS B [id number] S VYS [id number] BS Of [place] Commercial [id number] Family Dependent SELF PAY UNAVAILABLE SP UNAVAILA BLE SELF PAY [id number] [facility] [id number] SP [id number] BCBS [place] PPO [id number] [id number] [facility] [id number] SP [id number] EMEDNY [id number] SP [id number] SELF PAY ONLY [id number] SP [id number] MEDICAID M [id number] S [id number] MEDICAID M [id number] S [id number] MEDICAID M UNAVAILABLE [id number] S UNAVAILA BLE Problems, Conditions, and Diagnoses Code Display Name Description Problem Type Effective Dates Data Source(s) I10 Essential (primary) hypertension Essential (primary) h ypertension Diagnosis 10/24/2020 02:00:54 PM EDT [facility] I25.10 Atherosclerotic heart diseas e of [place] coronary artery without angina pectoris Atherosclerotic heart disease of [place] Diagnosis 10/24/2020 02:00:54 PM EDT [facility] E78.00 Pure hypercholesterolemia, unspecified P ure hypercholesterolemia, unspecified Diagnosis 10/24/2020 02:00:54 PM EDT [facility] Surgeries/Procedures Procedure Description Date Indications Data Source(s) Mammogram 03/09/2021 12:00:00 AM EDT GEM ([facility]) OFFICE OUTPATIENT VISIT 25 MINUTES 03/09/2021 12:00:00 AM EDT RAFA ([facility]) Diabetic Retinal Eye Exam 11/02/2020 12:00:00 AM EDT MEDDOUGLAS ([facility]) ECG ROUTINE ECG W/LEAST 12 LDS W/I&R <td>POCT AMB EKG</td><td>Routine</td><td>06/13/2020 10:21 AM EST</td><td> Coronary artery disease involving [place] coronary artery of [place] heart without angina pectoris</td><td> </td> 06/13/2020 03:21:00 PM EST Coronary artery disease involving [place] coronary artery of [place] heart without angina pectoris [facility] Coronary artery disease involving [place] coronary artery of [place] heart without angina pectoris Colonoscopy Flexible Proximal To Splenic Flexure W/Biopsy Si ngle/ 05/24/2020 12:00:00 AM EST [facility] ([facility]) Excision Tumor Back/Flank, Soft Tissue, Subcutaneous, > 3 CM 03/08/2020 12:00:00 AM EDT [facility] ([facility]) Results ID Date Data Source [id number] 03/09/2021 08:37:00 AM EDT [facility] ([facility]) Name Value Range Interpretation Code Description Data Alison rce(s) Supporting Document(s) Thyrotropin [Units/volume] in Serum or Plasma by Detec tion limit <= 0.05 mIU/L 1.94 uIU/mL 0.36-3.74 [facility] ([facility] ) ID Date Data Source [id number] 03/09/2021 08:37:00 AM EDT [facility] ([facility]) Name Value Range Interpretation Code Description Data Alison rce(s) Supporting Document(s) Glucose [Mass/volume] in Serum or Plasma 80 mg/dL 74-99 [facility] ([facility]) 100-125 mg/dL PRE-DIABETES/FASTING >126 mg/dL DIABETES/FASTING Creatinine 0.9 mg/dL 0.6-1.3 [facility]) Urea nitrogen [Mass/volume] in Serum or Plasma 14 mg/dL 7-18 [facility] ([facility]) Sodium [Moles/volume] in Serum or Plasma 141 meq/L 136-145 [facility] ([facility]) Potassium [Moles/volume] in Serum or Plasma 3.9 meq/L 3.5-5.1 [facility] ([facility]) Carbon dioxide, total [Moles/volume] in Serum or Plasma 32 meq/L 21 -32 [facility] ([facility]) Chloride [Moles/volume] in Serum or Plasma 103 meq/L 98-107 [facility] ([facility]) Calcium [Mass/volume] in Serum or Plasma 9.7 mg/dL 8.5-10.1 [facility] ([facility]) Glomerular filtration rate/1.73 sq M pre dicted among non-blacks [Volume Rate/Area] in Serum or Plasma by Creatinine-based formula (MDRD) Laboratory test result [facility] Glomerular filtration rate/1.73 sq M pre dicted among blacks [Volume Rate/Area] in Serum or Plasma by Creatinine-based formula (MDRD) Laboratory test result [facility] <content>CHRONIC KIDNEY DISEASE STAGING PER NKF</content>
<content></content>
<content>STAGE I & II GFR >= 60 NORMAL TO MILDLY DECREASED</content>
<content>STAGE III GFR 30-59 MODERATELY DECREASED</content>
<content>STAGE IV GFR 15-29 SEVERELY DECREASED</content>
<content>STAGE V GFR <15 VERY LITTLE GFR LEFT</content>
<content>ESRD GFR <15 ON FAMILY RESOURCE COORDINATOR</content>
<content></content> ID Date Data Source [id number] 08/24/2020 08:41:00 AM EST [facility] ([facility]) Name Value Range Interpretation Code Description Data Alison rce(s) Supporting Document(s) Cobalamin (Vitamin B12) [Mass/volume] in Serum or Plasma 586 pg/mL 2 47-911 [facility] ([facility] VITAMIN B12 NORMAL RANGE NORMAL 247 - 911 PG/ML INDETERMINATE 211 - 246 PG/ML DEFICIENT LESS THAN 211 PG/ML ID Date Data Source [id number] 08/24/2020 08:41:00 AM EST [facility] ([facility]) Name Value Range Interpretation Code Description Data Alison rce(s) Supporting Document(s) Thyrotropin [Units/volume] in Serum or Plasma by Detec tion limit <= 0.05 mIU/L 0.58 uIU/mL 0.36-3.74 [facility] [facility] ID Date Data Source [id number] 08/24/2020 08:41:00 AM EST [facility] Name Value Range Interpretation Code Description Data Alison rce(s) Supporting Document(s) Glucose [Mass/volume] in Serum or Plasma 97 mg/dL 74-99 [facility] ([facility]) 100-125 mg/dL PRE-DIABETES/FASTING >126 mg/dL DIABETES/FASTING Urea nitrogen [Mass/volume] in Serum or Plasma 21 mg/dL 7-18 [facility] ([facility]) Sodium [Moles/volume] in Serum or Plasma 143 meq/L 136-145 [facility] ([facility]) Potassium [Moles/volume] in Serum or Plasma 4.0 meq/L 3.5-5.1 [facility] ([facility]) Creatinine 0.9 mg/dL 0.6-1.3 [facility] ([facility]) Calcium [Mass/volume] in Serum or Plasma 9.4 mg/dL 8.5-10.1 [facility] ([facility]) Chloride [Moles/volume] in Serum or Plasma 102 meq/L 98-107 [facility] ([facility]) Carbon dioxide, total [Moles/volume] in Serum or Plasma 27 meq/L 21 -32 [facility] ([facility]) Total Bilirubin 0.6 mg/dL 0.2-1.0 [facility] ([facility]) Aspartate aminotransferase [Enzymatic activity/volume] in Serum or Plasma 27 U/L 15-37 [facility] ([facility] ) Alkaline phosphatase isoenzyme [Units/volume] in Serum or Pl asma 134 mg/dL 46-116 [facility] ([facility]) NOTE: RESULT VERIFIED. Alanine aminotransferase [Enzymatic activity/volume] in Seru m or Plasma 60 U/L 12-78 [facility] ([facility]) Albumin [Mass/volume] in Serum or Plasma 3.9 g/dL 3.4-5.0 [facility] ([facility]) Proteinase 3 Ab [Units/volume] in Serum 7.8 g/dL 6.4-8.2 [facility] ([facility]) A/G Ratio 1.00 CALC 1.00-1.90 [facility] ([facility]) Glomerular filtration rate/1.73 sq M pre dicted among non-blacks [Volume Rate/Area] in Serum or Plasma by Creatinine-based formula (MDRD) Laboratory test result [facility] ([facility] Glomerular filtration rate/1.73 sq M pre dicted among blacks [Volume Rate/Area] in Serum or Plasma by Creatinine-based formula (MDRD) Laboratory test result [facility] ([facility] <content>CHRONIC KIDNEY DISEASE STAGING PER NKF</content>
<content></content>
<content>STAGE I & II GFR >= 60 NORMAL TO MILDLY DECREASED</content>
<content>STAGE III GFR 30-59 MODERATELY DECREASED</content>
<content>STAGE IV GFR 15-29 SEVERELY DECREASED</content>
<content>STAGE V GFR <15 VERY LITTLE GFR LEFT</content>
<content>ESRD GFR <15 ON FAMILY RESOURCE COORDINATOR</content>
<content></content> ID Date Data Source [id number] 08/24/2020 08:41:00 AM EST [facility] ([facility]) Name Value Range Interpretation Code Description Data Alison rce(s) Supporting Document(s) Erythrocytes [#/volume] in Blood by Automated count 3.51 x10*6/UL 4.2 0-6.30 [facility] ([facility]) Leukocytes [#/volume] in Blood by Automated count 6.4 x10*3/UL 4.1-10 .9 [facility] ([facility] Hemoglobin [Mass/volume] in Blood 12.6 g/dL 12.0-18.0 [facility] ([facility] Hematocrit [Volume Fraction] of Blood by Automated count 36.8 % 3 7.0-51.0 [facility] ([facility] MCV 104.8 fL 80.0-97.0 [facility] ([facility]) MCH 36.0 pg 26.0-32.0 [facility] ([facility]) MCHC 34.4 g/dL 31.0-38.0 [facility] ([facility]) Erythrocyte distribution width [Ratio] by Automated count 13.6 % 11.6-13.7 [facility] ([facility]) MPV 8.5 FL 7.8-11.0 [facility] ([place] [facility]) Lymph % 20.9 % 10.0-58.5 [facility] ([facility]) Platelets [#/volume] in Blood by Automated count 310 x10*3/UL 140-440 [facility] ([facility] Mid % 6.3 % 1.7-9.3 [facility] ([place] [facility]) Neut % 72.8 % 37.0-92.0 [facility] [facility]) Lymph # 1.3 x10*3/UL 0.6-4.1 [facility] ([facility]) Neut # 4.6 x10*3/UL 2.0-7.8 [facility] ([facility]) Mid # 0.5 x10*3/UL 0.1-0.6 [facility] ([facility]) ID Date Data Source [id number] 07/18/2020 09:30:00 AM [facility] ([facility]) Name Value Range Interpretation Code Description Data Alison rce(s) Supporting Document(s) Gastrointestinal (GI) Panel Laboratory test result [facility]) This Gastrointestinal PCR Panel detects the following bacteria, parasites and viruses: Campylobacter (jejuni, coli and upsaliensis), Clostridium difficile (toxin A/B), Plesiomonas shigelloides, Salmonella, Yersinia enterocolitica, Vibrio (parahaemolyticus, vulnificus and cholerae), Vibrio clolerae, Enteroaggregative E. coli (EAEC), Enteropathogenis E. coli (EPEC), Enterotoxigenic E. coli (ETEC) it/st, Shiga-like producing E. coli (STEC) stx1/stc2, E.coli O157, Shigella/Enteroinvasive E. coli (EIEC), Cryptosporidium, Cyclospora cayetanensis, Entamoeba histolytica, Giardia lamblia, Adenovirus F 40/41, Astrovirus, Norovirus GI/GII, Rotavirus A and Sapovirus (I, II, IV, V). NEGATIVE by MULTIPLEXED NUCLEIC ACID PCR ID Date Data Source [id number] 07/18/2020 09:30:00 AM [facility] ([facility]) Name Value Range Interpretation Code Description Data Alison rce(s) Supporting Document(s) Result 1 Laboratory test result Normal (applies to non-n umeric results) [facility] ([facility]) No ova, cysts, or parasites seen. . One negative specimen does not rule out the possibility of a parasitic infection. Performed at: [address] [id number] Resource Development Manager: Tashia Sotelo MD, Phone: [phone] Performed at: RN - [facility] [address] [id number] Resource Development Manager: Lucy Johnson MD, Phone: [phone] O+P Exam Laboratory test result Normal (applies to non-n umeric results) [facility] ([facility], ) These results were obtained using wet pr eparation(s) and trichrome stained smear. This test does not include testing for Cryptosporidium parvum, Cyclospora, or Microsporidia. ID Date Data Source [id number] 07/18/2020 09:30:00 AM EST [facility] ([facility]) Name Value Range Interpretation Code Description Data Alison rce(s) Supporting Document(s) Bacteria identified in Stool by Culture Laboratory test result [facility] ([facility]) Lactoferrin [Presence] in Stool by Immunoassay Laboratory test r esult Abnormal (applies to non-numeric results) [facility] ([facility]) Clostridium difficile DNA [Presence] in Unspecified specimen by Probe and target amplification method Laboratory test result [facility] ([facility]) ID Date Data Source [id number] 07/18/2020 09:30:00 AM EST [facility] ([facility]) Name Value Range Interpretation Code Description Data Alison rce(s) Supporting Document(s) Calprotectin [Mass/mass] in Stool 223 ug/g 0-120 Above high no rmal [facility] ([facility]) <content>Concentration Interpretatio n Follow-Up</content>
<content><16 - 50 ug/g Normal None</content>
<content>>50 -120 ug/g Borderline Re-evaluate in 4-6 weeks</content>
<content>>120 ug/g Abnormal Repeat as clinically</content>
<content>indicated</content>
<content></content> ID Date Data Source [id number] 07/11/2020 12:56:00 PM EST [facility] ([facility] Name Value Range Interpretation Code Description Data Alison rce(s) Supporting Document(s) QuantiFERON Criteria Laboratory test result [facility] ([facility]) . The QuantiFERON-TB Gold Plus result is determined by subtracting the Nil value from either TB antigen (Ag) tube. The mitogen tube serves as a control for the test. QuantiFERON TB1 Ag Value 0.04 IU/ml MEDE NT ([facility]) QuantiFERON Mitogen Value Laboratory test result [facility] ([facility]) QuantiFERON TB2 Ag Value 0.05 IU/ml [facility] NT ([facility]) QuantiFERON Nil Value 0.04 IU/ml [facility] ([facility]) QuantiFERON-TB Gold Plus Laboratory test result [facility] ([facility]) . The specimen received for QuantiFERON testing was incubated by the ordering institution. Specific procedures outlined in our Directory of Services and in the package insert for the QuantiFERON Gold (In Tube) test must be followed to enable for proper stimulation of cells for the production of interferon gamma. Performed at: - [facility] [id number] Resource Development Manager: Lucy Johnson MD, Phone: [phone] ID Date Data Source [id number] 07/11/2020 12:56:00 PM EST [facility] ([facility]) Name Value Range Interpretation Code Description Data Alison rce(s) Supporting Document(s) Erythrocyte sedimentation rate by Westergren method 29 mm/hr 0-30 [facility] ([facility]) ID Date Data Source [id number] 07/11/2020 12:56:00 PM EST [facility] ([facility]) Name Value Range Interpretation Code Description Data Alison rce(s) Supporting Document(s) White Blood Count 6.1 10 4.0-10.0 [facility] ([facility]) Hemoglobin 12.3 g/dL 12.0-15.5 [facility] ([place] [facility]) Red Blood Count 3.38 10 4.00-5.40 [facility] ([facility]) Hematocrit 36.4 % 36.0-47.0 [facility] ([place] [facility]) Mean Corpuscular Hemoglobin 36.4 pg 27.0-33.0 [place] [facility] ([facility]) Mean Corpuscular Volume 107.7 fl 80.0-96.0 [facility] ([facility]) Platelet Count, Automated 290 10 150-450 [facility] NT ([facility]) Red Cell Distribution Width 13.5 % 11.5-14.5 [place] [facility] ([facility]) Mean Corpuscular HGB Conc 33.8 g/dL 32.0-36.5 [facility] ([facility]) [place] % 5.4 % 0.0-5.0 [facility] ([place] [facility]) Lymph % 23.1 % 24.0-44.0 [facility] ([place] [facility]) Neutrophils % 67.4 % 36.0-66.0 [facility] ([facility]) Immature Granulocyte % 0.3 % 0-3.0 [facility] ([facility]) Eos % 3.1 % 0.0-3.0 [facility] ([place] [facility]) Baso % 0.7 % 0.0-1.0 [facility] [facility] Neutrophils # 4.1 10 1.5-8.5 [facility] ([facility]) Nucleated Red Blood Cell % 0.0 % 0-0 [facility] ([facility]) Eos # 0.2 10 0.0-0.5 [facility] ([place] [facility]) Lymph # 1.4 10 1.5-5.0 [facility] [facility]) [place] # 0.3 10 0.0-0.8 [facility] [facility] Baso # 0.0 10 0.0-0.2 [facility] [facility] ID Date Data Source [id number] 07/11/2020 12:56:00 PM EST [facility] ([facility], ) Name Value Range Interpretation Code Description Data Alison rce(s) Supporting Document(s) QuantiFERON Criteria Laboratory test result Norm al (applies to non-numeric results) [facility], ) . The QuantiFERON-TB Gold Plus result is determined by subtracting the Nil value from either TB antigen (Ag) tube. The mitogen tube serves as a control for the test. QuantiFERON TB1 Ag Value 0.04 IU/ml Normal (applies to non -numeric results) [facility] ([facility]) QuantiFERON TB2 Ag Value 0.05 IU/ml Normal (applies to non -numeric results) [facility] ([facility]) QuantiFERON Mitogen Value Laboratory test result Normal (applies to non- numeric results) [facility] ([facility]) QuantiFERON Nil Value 0.04 IU/ml Normal (applies to non-nu meric results) [facility] ([facility]) QuantiFERON-TB Gold Plus Laboratory test result Normal (applies to non-numeric results) [facility]) . The specimen received for QuantiFERON testing was incubated by the ordering institution. Specific procedures outlined in our Directory of Services and in the package insert for the QuantiFERON Gold (In Tube) test must be followed to enable for proper stimulation of cells for the production of interferon gamma. Performed at: RN - [facility] [address] [id number] Resource Development Manager: Lucy Johnson MD, Phone: [phone] ID Date Data Source [id number] 07/11/2020 12:56:00 PM EST [facility] ([facility]) Name Value Range Interpretation Code Description Data Alison rce(s) Supporting Document(s) Ast/Sgot 58 U/L 7-37 Above high normal [facility] ([facility]) Alt/SGPT 89 U/L 12-78 Above high normal [facility] ([facility]) Bilirubin,Total 0.6 mg/dL 0.2-1.0 Normal (applies to non-numeric results) [facility] ([facility]) Alkaline Phosphatase 108 U/L 45-117 Normal (applies to non-num carlos eduardo results) [facility]) Bilirubin,Direct 0.2 mg/dL 0.0-0.2 Normal (applies to non-numeric results) [facility] ([facility]) Total Protein 7.7 GM/DL 6.4-8.2 Normal (applies to non-numeric re sults) [facility]) Albumin 4.0 GM/DL 3.2-5.2 Normal (applies to non-numeric resul ts) [facility] ([facility]) Albumin/Globulin Ratio 1.1 1.2-2.2 Below low normal [facility] ([facility]) ID Date Data Source [id number] 07/11/2020 12:56:00 PM EST [facility] ([facility]) Name Value Range Interpretation Code Description Data Alison rce(s) Supporting Document(s) Glucose, Fasting 90 mg/dL 70-100 Normal (applies to non-numeric results) [facility] ([facility]) Blood Urea Nitrogen 20 mg/dL 7-18 Above high normal [facility] ([facility]) Glomerular Filtration Rate Laboratory test result Normal (applies to non- numeric results) [facility]) <content>Units are mL/min/1.73 m2</content>
<content></content>
<content>Chronic Kidney Disease Staging per NKF:</content>
<content></content>
<content>Stage I & II GFR >=60 Normal to Mildly Decreased</content>
<content>Stage III GFR 30- 59 Moderately Decreased</content>
<content>Stage IV GFR 15-29 Severely Decreased</content>
<content>Stage V GFR <15 Very Little GFR Left</content>
<content>ESRD GFR <15 on FAMILY RESOURCE COORDINATOR</content>
<content></content> Sodium Level 139 meq/L 136-145 Normal (applies to non-numeric res ults) [facility] ([facility]) Creatinine For GFR 0.90 mg/dL 0.55-1.30 Normal (applies to non -numeric results) [facility] ([facility]) Chloride Level 106 meq/L 98-107 Normal (applies to non-numeric r esults) [facility] ([facility]) Carbon Dioxide Level 26 meq/L 21-32 Normal (applies to non-num carlos eduardo results) [facility] ([facility]) Potassium Serum 4.2 meq/L 3.5-5.1 Normal (applies to non-numeric results) [facility] ([facility], ) Anion Gap 7 meq/L 8-16 Below low [facility] Calcium Level 9.6 mg/dL 8.5-10.1 Normal (applies to non-numeric re sults) [facility] ([facility]) ID Date Data Source [id number] 07/11/2020 12:56:00 PM EST [facility] ([facility]) Name Value Range Interpretation Code Description Data Alison rce(s) Supporting Document(s) White Blood Count 6.1 10 4.0-10.0 Normal (applies to non-numeri c results) [facility]) Red Blood Count 3.38 10 4.00-5.40 Below low normal [facility] ([facility]) Hemoglobin 12.3 g/dL 12.0-15.5 Normal (applies to non-numeric resul ts) [facility]) Mean Corpuscular Volume 107.7 fl 80.0-96.0 Above high normal [facility] ([facility]) Hematocrit 36.4 % 36.0-47.0 Normal (applies to non-numeric resul ts) [facility]) Mean Corpuscular Hemoglobin 36.4 pg 27.0-33.0 Above high normal [facility] ([facility]) Red Cell Distribution Width 13.5 % 11.5-14.5 Norm al (applies to non-numeric results) [facility]) Mean Corpuscular HGB Conc 33.8 g/dL 32.0-36.5 Normal (applies to non-numeric results) [facility] ([facility]) Platelet Count, Automated 290 10 150-450 Normal (applies to non-numeric results) [facility]) Lymph % 23.1 % 24.0-44.0 Below low normal [facility] ( [facility]) Neutrophils % 67.4 % 36.0-66.0 Above high normal [facility] ([facility]) [place] % 5.4 % 0.0-5.0 Above high normal [facility] ([facility]) Eos % 3.1 % 0.0-3.0 Above high normal [facility] ([facility]) Immature Granulocyte % 0.3 % 0-3.0 Normal (applies to non-n umeric results) [facility] ([facility]) Baso % 0.7 % 0.0-1.0 Normal (applies to non-numeric resul ts) [facility] ([facility]) Nucleated Red Blood Cell % 0.0 % 0-0 Normal (applies to n on-numeric results) [facility] ([facility]) Lymph # 1.4 10 1.5-5.0 Below low normal [facility] Neutrophils # 4.1 10 1.5-8.5 Normal (applies to non-numeric re sults) [facility] ([facility]) Eos # 0.2 10 0.0-0.5 Normal (applies to non-numeric resul ts) [facility] ([facility]) Baso # 0.0 10 0.0-0.2 Normal (applies to non-numeric resul ts) [facility] ([facility]) [place] # 0.3 10 0.0-0.8 Normal (applies to non-numeric resul ts) [facility] ([facility]) ID Date Data Source [id number] 07/11/2020 12:56:00 PM EST [facility] ([facility]) Name Value Range Interpretation Code Description Data Alison rce(s) Supporting Document(s) Hepatitis B virus surface Ab [Units/volume] in Serum 61.2 mIU/mL Normal (applies to non-numeric results) [facility] ([facility]) Status of Immunity A nti-HBs Level - Inconsistent with Immunity 0.0 - 9.9 Consistent with Immunity >9.9 Hepatitis B virus core Ab [Presence] in Serum Laboratory test re sult Normal (applies to non-numeric results) [facility] ([facility]) Performed at: BN - [facility] [id number] Resource Development Manager: Tashia Sotelo MD, Phone: [phone] Performed at: [facility] [id number] Resource Development Manager: Lucy Johnson MD, Phone: [phone] Hepatitis B virus surface Ag [Presence] in Serum or Pl asma by Immunoassay Laboratory test result Normal (applies to non-numeric results) [facility] ([facility]) Hepatitis C virus Ab [Units/volume] in Serum by Immunoassay 0.2 INDEX Normal (applies to non-numeric results) [facility] ([facility]) Negative Not infected with HCV, unless recent infection is suspected or other evidence exists to indicate HCV infection. ID Date Data Source [id number] 07/11/2020 12:56:00 PM EST [facility] ([facility]) Name Value Range Interpretation Code Description Data Alison rce(s) Supporting Document(s) C reactive protein [Mass/volume] in Serum or Plasma by High sensitivity method 0.30 mg/dL 0.00-0.30 Normal (applies to non-numeric results) [facility] ([facility]) Erythrocyte sedimentation rate by Westergren method 29 mm/hr 0-30 Normal (applies to non-numeric results) [facility] ([facility]) ID Date Data Source [id number] 07/11/2020 12:56:[address] [facility]) Name Value Range Interpretation Code Description Data Alison rce(s) Supporting Document(s) Anti-Saccharomyces Cerev. IgG Laboratory test result 0.0-24.9 Normal (applies to non-numeric results) [facility] ([facility] ) <content>Negative <20.0</content >
<content>Equivocal 20.1 - 24.9</content>
<content>Positive >or= 25.0</content>
<content></content> Anti-Saccharomyces Cerev. IgA Laboratory test result 0.0-24.9 Normal (applies to non-numeric results) [facility] ([facility] ) <content>Negative <20.0</content>
<content>Equivocal 20.1 - 24.9</content>
<content>Positive >or= 25.0</content>
<content>IgA and IgG antibody testing for S. cerevisiae is</content>
<content>useful adjunct testing for differentiating Crohn's</content>
<content>disease and ulcerative colitis. Close to 80% of</content>
<content>Crohn's disease patients are positive for either</content>
<content>IgA or IgG. In ulcerative colitis, less than 15% are</content>
<content>positive for IgG and less than 2% are positive for</content>
<content>IgA. Fewer than 5% are positive for either IgG or</content>
<content>IgA antibody, and no healthy controls had antibody</content>
<content>for both.</content>
<content></content> ID Date Data Source [id number] 07/11/2020 12:56:00 PM EST [facility] ([facility], ) Name Value Range Interpretation Code Description Data Alison rce(s) Supporting Document(s) Perinuclear AB Anca-P Laboratory test result Nor mal (applies to non-numeric results) [facility] ([facility], ) The presence of positive fluorescence ex hibiting P-ANCA or C-ANCA patterns alone is not specific for the diagnosis of Svetlana's Granulomatosis (WG) or microscopic polyangiitis. Decisions about treatment should not be based solely on ANCA IFA results. The [employer] ANCA [employer] Consensus recommends follow up testing of positive sera with both MA- 3 and MPO-ANCA enzyme immunoassays. As m any as 5% serum samples are positive only by EIA. Ref. AM J Clin Pathol 1999;111:507-513. Cytoplasmic Neutrop AB Anca-C Laboratory test result Normal (applies to non- numeric results) [facility] ) Anca-Atypical Laboratory test result Normal (applies t o non-numeric results) [facility], ) The atypical pANCA pattern has been obse rved in a significant percentage of patients with ulcerative colitis, primary sclerosing cholangitis and autoimmune hepatitis. ID Date Data Source [id number] 07/11/2020 12:55:00 PM EST [facility] ([facility]) Name Value Range Interpretation Code Description Data Alison rce(s) Supporting Document(s) Hepatitis B virus core Ab [Presence] in Serum Laboratory test result [facility] ([facility]) Performed at: - [facility] [id number] Resource Development Manager: Tashia Sotelo MD, Phone: [phone] Performed at: [facility] [id number] Resource Development Manager: Lucy Johnson MD, Phone: [phone] ID Date Data Source [id number] 07/11/2020 12:55:00 PM EST [facility] ([facility]) Name Value Range Interpretation Code Description Data Alison rce(s) Supporting Document(s) Anti-Saccharomyces Cerev. IgG Laboratory test result 0.0-24.9 [facility] ([facility]) <content>Negative <20.0</content >
<content>Equivocal 20.1 - 24.9</content>
<content>Positive >or= 25.0</content>
<content></content> Anti-Saccharomyces Cerev. IgA Laboratory test result 0.0-24.9 [facility] ([facility] [facility] <content>Negative <20.0</content>
<content>Equivocal 20.1 - 24.9</content>
<content>Positive >or= 25.0</content>
<content>IgA and IgG antibody testing for S. cerevisiae is</content>
<content>useful adjunct testing for differentiating Crohn's</content>
<content>disease and ulcerative colitis. Close to 80% of</content>
<content>Crohn's disease patients are positive for either</content>
<content>IgA or IgG. In ulcerative colitis, less than 15% are</content>
<content>positive for IgG and less than 2% are positive for</content>
<content>IgA. Fewer than 5% are positive for either IgG or</content>
<content>IgA antibody, and no healthy controls had antibody</content>
<content>for both.</content>
<content></content> ID Date Data Source [id number] 07/11/2020 12:55:00 PM EST [facility] Name Value Range Interpretation Code Description Data Alison rce(s) Supporting Document(s) Hepatitis B virus surface Ab [Units/volume] in Serum 61.2 mIU/mL [facility] ([place] [facility] Status of Immunity A nti-HBs Level - Inconsistent with Immunity 0.0 - 9.9 Consistent with Immunity >9.9 ID Date Data Source [id number] 07/11/2020 12:55:00 PM EST [facility] Name Value Range Interpretation Code Description Data Alison rce(s) Supporting Document(s) Anca-Atypical Laboratory test result [facility] ([place] [facility] The atypical pANCA pattern has been obse rved in a significant percentage of patients with ulcerative colitis, primary sclerosing cholangitis and autoimmune hepatitis. Perinuclear AB Anca-P Laboratory test result [facility] ([place] [facility] The presence of positive fluorescence ex hibiting P-ANCA or C-ANCA patterns alone is not specific for the diagnosis of Svetlana's Granulomatosis (WG) or microscopic polyangiitis. Decisions about treatment should not be based solely on ANCA IFA results. The [employer] Consensus recommends follow up testing of positive sera with both MA- 3 and MPO-ANCA enzyme immunoassays. As m any as 5% serum samples are positive only by EIA. Ref. AM J Clin Pathol 1999;111:507-513. Cytoplasmic Neutrop AB Anca-C Laboratory test result [facility] ID Date Data Source [id number] 07/11/2020 12:55:00 PM EST [facility]) Name Value Range Interpretation Code Description Data Alison rce(s) Supporting Document(s) C reactive protein [Mass/volume] in Serum or Plasma by High sensitivity method 0.30 mg/dL 0.00-0.30 [facility] ([facility] ) Hepatitis B virus surface Ag [Presence] in Serum or Pl asma by Immunoassay Laboratory test result [facility] ([facility]) ID Date Data Source [id number] 07/11/2020 12:55:00 PM EST [facility] ([facility]) Name Value Range Interpretation Code Description Data Alison rce(s) Supporting Document(s) Creatinine For GFR 0.90 mg/dL 0.55-1.30 [facility] ([facility]) Glucose, Fasting 90 mg/dL 70-100 [facility] ([facility]) Blood Urea Nitrogen 20 mg/dL 7-18 [facility] ([facility]) Sodium Level 139 meq/L 136-145 [facility] ([facility]) Glomerular Filtration Rate Laboratory test result [facility] ([facility]) <content>Units are mL/min/1.73 m2</content>
<content></content>
<content>Chronic Kidney Disease Staging per NKF:</content>
<content></content>
<content>Stage I & II GFR >=60 Normal to Mildly Decreased</content>
<content>Stage III GFR 30- 59 Moderately Decreased</content>
<content>Stage IV GFR 15-29 Severely Decreased</content>
<content>Stage V GFR <15 Very Little GFR Left</content>
<content>ESRD GFR <15 on FAMILY RESOURCE COORDINATOR</content>
<content></content> Carbon Dioxide Level 26 meq/L 21-32 [facility] ( [facility] Chloride Level 106 meq/L 98-107 [facility] ([facility]) Potassium Serum 4.2 meq/L 3.5-5.1 [facility] ([facility]) Calcium Level 9.6 mg/dL 8.5-10.1 [facility] ([facility]) Anion Gap 7 meq/L 8-16 [facility] ([facility]) ID Date Data Source [id number] 07/11/2020 12:55:00 PM EST [facility] ([facility]) Name Value Range Interpretation Code Description Data Alison rce(s) Supporting Document(s) Alt/SGPT 89 U/L 12-78 [facility] ([facility]) Ast/Sgot 58 U/L 7-37 [facility] ([facility]) Alkaline Phosphatase 108 U/L 45-117 [facility] ([facility]) Bilirubin,Total 0.6 mg/dL 0.2-1.0 [facility] ([facility]) Bilirubin,Direct 0.2 mg/dL 0.0-0.2 [facility] ([facility]) Albumin/Globulin Ratio 1.1 1.2-2.2 [facility] ([facility]) Albumin 4.0 GM/DL 3.2-5.2 [facility] ([facility]) Total Protein 7.7 GM/DL 6.4-8.2 [facility] ([facility]) ID Date Data Source [id number] 07/11/2020 12:55:00 PM EST [facility] ([facility]) Name Value Range Interpretation Code Description Data [facility] rce(s) Supporting Document(s) Hepatitis C virus Ab [Units/volume] in Serum by Immunoassay 0.2 INDEX [facility] ([facility]) Negative Not infected with HCV, unless recent infection is suspected or other evidence exists to indicate HCV infection. ID Date Data Source [id number] 05/24/2020 10:40:00 AM EST [facility] ([facility], ) Name Value Range Interpretation Code Description Data [facility](s) Supporting Document(s) Surgical pathology study Laboratory test result [facility] ([facility], ) FINAL DIAGNOSIS A-Right colon, biopsy: Colonic mucosa without significant pathology. B-Left colon, biopsy: Colonic mucosa with showing epithelitis/cryptitis, rare crypt abscess, basal plasmacytosis and gland branching, compatible with chronic active colitis with mild to moderate activity. No granulomas are identified. No evidence of premalignant dysplasia. The findings are compatible with patient's history of chronic inflammatory bowel disease. C-Colon polyps, polypectomy: Tubular adenoma. Separate fragments of hyperplastic polyp. 05/25/2020913 CLINICAL DIAGNOSIS Follow-up ulcerative colitis, family H/O colon CA 05/25/2020724 GROSS DIAGNOSIS A - Received in formalin labeled "right colon biopsy" and consists of a fragment of tissue 0.1 x 0.1 x 0.1 cm. All in one. B - Received in formalin labeled "left colon biopsy" and consists of a fragment of tissue 0.1 x 0.1 x 0.1 cm. All in one. C - Received in formalin labeled "colon polyps" and consists of a fragment of tissue 0.1 x 0.1 x 0.1 cm. All in one. -OA 05/25/2020724 Signed SHAWANDA NAQVI MD 05/25/2020 0917 ID Date Data Source [id number] 05/19/2020 12:00:00 PM EST [facility] Name Value Range Interpretation Code Description Data Alison rce(s) Supporting Document(s) SARS coronavirus 2 RNA [facility] This lab was ordered by [facility] and reported by [facility]. ID Date Data Source [id number] 03/08/2020 11:51:00 AM EDT [facility] ([facility], ) Name Value Range Interpretation Code Description Data Alison rce(s) Supporting Document(s) Surgical pathology study Laboratory test [facility] ) FINAL DIAGNOSIS Lipoma, back, resection: Lipoma. 03/10/2020714 CLINICAL DIAGNOSIS Lipoma back 03/09/2020737 GROSS DIAGNOSIS Received in formalin labeled "lipoma" is one fragment of yellow-graham lobulated fibroadipose tissue measuring 7.0 x 4.5 x 1.2 cm. The specimen is serially sectioned and a site safety representative section is submitted of the lobulated adipose tissue. -SV 03/09/2020737 Signed JASVIR LEW MD 03/10/2020 0857 Procedure Social History Code Duration Value Status Description Data Source(s ) Smoking 06/13/2020 12:00:00 AM EST Former smoker completed Former smoker [facility] Vital Signs ID Date Data Source UNK Name Value Range Interpretation Code Description Data Source(s) Oxygen saturation in Arterial blood by Pulse oximetry 98 % 98 % [facility]) Body mass index (BMI) [Ratio] 30.4 kg/m2 30.4 k g/m2 [facility] ([facility]) Systolic blood pressure 118 mm[Hg] 118 mm[Hg] M [facility]ENT ([facility]) Diastolic blood pressure 80 mm[Hg] 80 mm[Hg] [facility] ([facility]) Heart rate 94 /min 94 /min [facility] ([facility]) Body height 65.25 [in_i] 65.25 [in_i] [facility] ([facility] 5'5.25" Body weight 184.00 [lb_av] 184.00 [lb_av] MED[facility] T ([facility]) Body height 165.1 cm 165.1 cm [facility] Respiratory rate 16 /min 16 /min [facility] Body mass index (BMI) [Ratio] 30.45 kg/m2 30.45 kg/m2 [facility] Body weight 83.008 kg 83.008 kg [facility] Systolic blood pressure 124 mm[Hg] 124 mm[Hg] M EDENT ([facility]) Diastolic blood pressure 78 mm[Hg] 78 mm[Hg] [facility] ([facility]) Heart rate 88 /min 88 /min [facility] ([facility]) Body height 65.25 [in_i] 65.25 [in_i] [facility] 5'5.25" Body weight 181.00 [lb_av] 181.00 [lb_av] MED[facility] T ([facility]) Body mass index (BMI) [Ratio] 29.9 kg/m2 29.9 k g/m2 [facility] ([facility]) Body weight 180.00 [lb_av] 180.00 [lb_av] [facility] T ([facility], ) Body mass index (BMI) [Ratio] 30.0 kg/m2 30.0 k g/m2 [facility] ([facility], ) Mabel body weight 125 [lb_av] 125 [lb_av] MED[facility] T ([facility], ) Body weight 81.648 kg 81.648 kg [facility] ([facility], ) Body surface area Derived from formula 1.89 m2 1.89 m2 [facility]) Systolic blood pressure 134 mm[Hg] 134 mm[Hg] [facility] Diastolic blood pressure 82 mm[Hg] 82 mm[Hg] [facility] ([facility]) Body height 65 [in_i] 65 [in_i] [facility] ([facility]) 5'5" Systolic blood pressure 120 mm[Hg] 120 mm[Hg] [facility] Diastolic blood pressure 82 mm[Hg] 82 mm[Hg] [facility] Heart rate 76 /min 76 /min [facility] Respiratory rate 16 /min 16 /min [facility] Body height 165.1 cm 165.1 cm [facility] Body weight 81.194 kg 81.194 kg [facility] Body mass index (BMI) [Ratio] 29.79 kg/m2 29.79 kg/m2 [facility] Systolic blood pressure 136 mm[Hg] 136 mm[Hg] [facility] ([facility]) Diastolic blood pressure 74 mm[Hg] 74 mm[Hg] [facility] ([facility]) Body height 65 [in_i] 65 [in_i] [facility] ([facility]) 5'5" Body weight 181.00 [lb_av] 181.00 [lb_av] [facility] T ([facility]) Body mass index (BMI) [Ratio] 30.1 kg/m2 30.1 k g/m2 [facility] ([facility]) Mabel body weight 125 [lb_av] 125 [lb_av] [facility] T ([facility]) Body weight 82.102 kg 82.102 kg [facility] ([facility]) Body surface area Derived from formula 1.90 m2 1.90 m2 [facility] ([facility]) Systolic blood pressure 120 mm[Hg] 120 mm[Hg] [facility] Diastolic blood pressure 80 mm[Hg] 80 mm[Hg] [facility] ([facility], ) Body height 65 [in_i] 65 [in_i] [facility] ([facility]) 5'5" Body weight 181.25 [lb_av] 181.25 [lb_av] SOP[facility]IEEN T ([facility], ) Body mass index (BMI) [Ratio] 30.2 kg/m2 30.2 k g/m2 [facility] ([facility]) Body weight 82.215 kg 82.215 kg [facility] ([facility]) Patient Treatment Plan of Care Planned Activity Planned Date Details Description Data Source (s) Hydrochlorothiazide 12.5 MG Oral Capsule 09/26/2020 12:00:00 AM EDT [facility] Sulfasalazine 500 MG Oral Tablet 09/21/2020 12:00:00 AM [facility] Budesonide 3 MG Delayed Release Oral Capsule 09/03/2020 12:00:00 AM [facility] Losartan Potassium 100 MG Oral Tablet 07/23/2020 12:00:00 AM [facility] Hydrochlorothiazide 12.5 MG / Losartan Potassium 100 M G Oral Tablet 07/18/2012 12:00:00 AM [facility]
--- OUTSIDE RECORDS SUMMARY | 2021-05-05 13:45 | CCD | Continuity of Care Document ---
Author Author Paloma SABILLON Organization Unknown Address [address] [facility] [address] [place] [address] Phone [phone] Care Team Providers Care Paper Steamer Name Role Phone Roberta Sabillon DO AUTM Unavailable Jhon Chairez MD AUTM [phone] Problems Active Problems Provider Date Old myocardial [...] 81mg Tablets DR 1 po qd Roberta Sabillon, 12/09/2012 Carvedilol 6.25mg Tablets Take One Tablet By Mouth Twice A Day 60tabs Roberta Sabillon,DO Budesonide 3mg Caps DR Chiang 3 tab daily x 4 weeks then [...] Date Facility Test Result H/L Range Note Basic Metabolic Panel 03/09/2021 [facility] Photographic Spotter: Dr Jonah Navarrete [place], [place] [id number] [phone] Glucose 80 mg/dL 74 - 99 1 BUN 14 mg/dL 7 - 18 Creatinine 0.9 mg/dL 0.6 - 1.3 Sodium 141 mEq/L 136 - 145 Potassium 3.9 mEq/L 3.5 - 5.1 Chloride 103 mEq/L 98 - 107 Carbon Dioxide 32 mEq/L 21 - 32 Calcium 9.7 mg/dL 8.5 - 10.1 GFR >= 60 mL/min >60 GFR >= 60 mL/min >60 2 Laboratory test finding 03/09/2021 [facility] Photographic Spotter: [place] [address] [phone] Thyroid Stimulating Hormone 1.94 uIU/mL 0.3 6 - 3.74 1 100-125 mg/dL PRE-DIABET ES/FASTING >126 mg/dL DIABETES/FASTING 2 CHRONIC KIDNEY DISEASE STAGI NG PER NKF STAGE I & II GFR >= 60 NORMAL TO MILDLY DECREASED STAGE III GFR 30-59 MODERATELY DECREASED STAGE IV GFR 15-29 SEVERELY DECREASED STAGE V GFR <15 VERY LITTLE GFR LEFT ESRD GFR <15 ON DISPATCHER BUS AND TROLLEY Procedures Date Code Description Status 03/09/2021 24436 Office/Outpatient Established Mo d MDM 30-39 Min Completed 03/09/2021 [id number] Mammogram Completed 11/02/2020 [id number] Diabetic Retinal Eye Exam Comple nyasia 12/10/2012 [id number] Colonoscopy Completed 04/05/2005 [id number] Mammogram Completed Medical Devices Description No Information Available Encounters Type Date Location Provider Dx Diagnosis Office Visit 03/09/2021 9:00a [facility] Roberta Sabillon DO K51.90 Ulcerative colitis, unspecified, without complications I25.10 Athscl heart disease of myriam ve coronary artery w/o ang pctrs I10 Essential (primary) hyperten caden E03.9 Hypothyroidism, unspecified E78.5 Hyperlipidemia, unspecified Assessments Date Code Description Provider 03/09/2021 K51.90 Ulcerative colitis, unspecified, without complications Roberta Sabillon DO 03/09/2021 I25.10 Atherosclerotic heart disease of [place] coronary artery with Roberta Sabillon DO 03/09/2021 I10 Essential (primary) hypertension Roberta Sabillon DO 03/09/2021 E03.9 Hypothyroidism, unspecified Bernard Sabillon DO 03/09/2021 E78.5 Hyperlipidemia, unspecified Bernard Sabillon DO Plan of Treatment Future Appointment(s):* 09/12/2021 8:00 am - Roberta Sabillon DO at [facility] 03/09/2021 - Roberta Sabillon DO* K51.90 Ulcerative colitis, unspecified, without complications * I25.10 Atherosclerotic heart disease of [place] coronary artery with * I10 Essential (primary) hypertension * E03.9 Hypothyroidism, unspecified * E78.5 Hyperlipidemia, unspecified Functional Status Description No Information Available Mental Status Description No Information Available Referrals Description No Information Available
--- OUTSIDE RECORDS SUMMARY | 2021-05-05 13:45 | CCD | Continuity of Care Document ---
Author Author Paloma SABILLON Organization Unknown Address [address] [facility] [address] [place] [address] Phone [phone] Care Team Providers Care Surveillance Inspector Name Role Phone Roberta Sabillon DO AUTM Unavailable Jhon Chairez MD AUTM [phone] Problems Active Problems Provider Date Old myocardial [...] H/L Range Note Basic Metabolic Panel 03/09/2021 [facility] Costume Cutter: Dr Jonah Navarrete [place], [place] [id number] [phone] Glucose 80 mg/dL 74 - 99 1 [...] mL/min >60 2 Laboratory test finding 03/09/2021 [facility] Costume Cutter: [place] [address] [phone] Thyroid Stimulating Hormone 1.94 uIU/mL 0.3 6 - 3.74 1 100-125 mg/dL PRE-DIABET ES/FASTING >126 mg/dL DIABETES/FASTING 2 CHRONIC KIDNEY DISEASE STAGI NG PER NKF STAGE I & II GFR >= 60 NORMAL TO MILDLY DECREASED STAGE III GFR 30-59 MODERATELY DECREASED STAGE IV GFR 15-29 SEVERELY DECREASED STAGE V GFR <15 VERY LITTLE GFR LEFT ESRD GFR <15 ON FINANCE VICE PRESIDENT Procedures Date Code Description Status 11/02/2020 [id number] Diabetic Retinal Eye Exam Comple nyasia 12/10/2012 [id number] Colonoscopy Completed 04/05/2005 [id number] Mammogram Completed Medical Devices Description No Information Available Encounters Description No Information Available Assessments Date Code Description Provider 03/09/2021 K51.90 Ulcerative colitis, unspecified, without complications Roberta Sabillon DO 03/09/2021 I25.10 Atherosclerotic heart disease of [place] coronary artery with Roberta Sabillon DO 03/09/2021 I10 Essential (primary) hypertension Roberta Sabillon DO 03/09/2021 E03.9 Hypothyroidism, unspecified Bernard Sabillon DO 03/09/2021 E78.5 Hyperlipidemia, unspecified Bernard Sabillon DO Plan of Treatment Future Appointment(s):* 09/12/2021 8:00 am - Roberta Sabillon DO at [facility] 03/09/2021 - Roberta Sabillon DO* K51.90 Ulcerative colitis, unspecified, without complications * I25.10 Atherosclerotic heart disease of [place] coronary artery with * I10 Essential (primary) hypertension * E03.9 Hypothyroidism, unspecified * E78.5 Hyperlipidemia, unspecified Functional Status Description No Information Available Mental Status Description No Information Available Referrals Description No Information Available
[2021-05-05 13:47] LABS: BLOOD UREA NITROGEN 20 MG/DL (7-18); CALCIUM LEVEL 8.5 MG/DL (8.8-10.2); CARBON DIOXIDE LEVEL 29 MEQ/L (21-32); CHLORIDE LEVEL 101 MEQ/L (98-107); CK-MB VALUE MASS < 1.0 NG/ML (<3.6); CPK CREATINE PHOSPHOKINASE 57 U/L (26-192); GLOMERULAR FILTRATION RATE 44.5 (>45); GLUCOSE, FASTING 104 MG/DL (70-100); MAGNESIUM LEVEL 1.5 MG/DL (1.8-2.4); MB/CK RELATIVE INDEX 1.75 (< OR =4); POTASSIUM SERUM 3.6 MEQ/L (3.5-5.1); SODIUM LEVEL 137 MEQ/L (136-145); TROPONIN I < 0.02 NG/ML (< 0.10)
--- NOTE | 2021-05-05 13:55 | REPVR ---
PROCEDURE INFORMATION: Exam: CT Head Without Contrast Exam date and time: 05/05/2021 1:24 PM Age: 60 years old Clinical indication: Injury or trauma; Fall; Blunt trauma (contusions or hematomas); Additional info: Fall injury with forhead contusion TECHNIQUE: Imaging protocol: Computed tomography of the head without contrast. Radiation optimization: All CT scans at this facility use at least one of these dose optimization techniques: automated exposure control; mA and/or kV adjustment per patient size (includes targeted exams where dose is matched to clinical indication); or iterative reconstruction. COMPARISON: No relevant prior studies available. FINDINGS: Brain: No acute intracranial hemorrhage, cerebral edema, or midline shift. Cerebral ventricles: No hydrocephalus. Paranasal sinuses: There is mild mucosal thickening noted within the paranasal sinuses. Mastoid air cells: The mastoid air cells are clear. Orbital cavity: Unremarkable as visualized. Bones/joints: No acute fracture. Soft tissues: Unremarkable. IMPRESSION: No acute intracranial abnormality. Electronically signed by: Reno Forbes On 05/05/2021 13:55:33 PM
--- NOTE | 2021-05-05 13:59 | REPVR ---
PROCEDURE INFORMATION: Exam: CT Cervical Spine Without Contrast Exam date and time: 05/05/2021 1:24 PM Age: 60 years old Clinical indication: Injury or trauma; Fall; Blunt trauma; Additional info: Fall injury with forhead contusion TECHNIQUE: Imaging protocol: Computed tomography images of the cervical spine without contrast. Radiation optimization: All CT scans at this facility use at least one of these dose optimization techniques: automated exposure control; mA and/or kV adjustment per patient size (includes targeted exams where dose is matched to clinical indication); or iterative reconstruction. COMPARISON: CT ANGIO CHEST 09/29/2018 4:00 PM FINDINGS: Bones/joints: No acute fracture. Normal alignment. Discs/Spinal canal/Neural foramina: Moderate/severe degenerative changes of the cervical spine are present. There is no severe spinal canal stenosis. Multilevel neural foraminal narrowing from uncinate spurring and facet arthropathy is noted. Lungs: Lung apices are clear. Soft tissues: Unremarkable. IMPRESSION: 1. No acute abnormality. 2. Chronic findings as discussed above. Electronically signed by: Reno Forbes On 05/05/2021 13:58:32 PM
--- NOTE | 2021-05-05 14:22 | REP ---
INDICATION: cough. COMPARISON: 09/29/2018 the latest prior also portable TECHNIQUE: Portable FINDINGS: The technique utilized in obtaining the radiograph has magnified the cardiac silhouette and accentuated the interstitial markings. There is mild cardiomegaly accentuated by technique. The lung saba are clear and stable. The pleural angles are sharp. The osseous structures are stable IMPRESSION: No acute cardiopulmonary disease <Electronically signed by Christopher Larose > 05/05/21 [id number]
[2021-05-05 16:09] LABS: RSV AMPLIFICATION NEGATIVE (NEGATIVE)
[2021-05-05] MEDS ORDERED: MAG SULF 1GM/100ML (MAG RUN) 1 GM in IV 1 EA IV ONE (17:05)
[2021-05-05] MEDS ORDERED: LOSA100T50 PO (17:34)
--- OUTSIDE RECORDS SUMMARY | 2021-05-05 17:40 | CCD ---
Author Author [facility] Organization [facility] Address Unknown Phone Unavailable Care Team Providers Care Public Relations Intern Name Role Phone Sammi Haddad LINE APPLIANCE ASSEMBLER Unavailable Unavailable Boo, Sammi Calhoun LINE APPLIANCE ASSEMBLER Unavailable Unavailable Johnston, Sammi Lj LINE APPLIANCE ASSEMBLER Unavailable Unavailable Johnston, Sammi Lj LINE APPLIANCE ASSEMBLER Unavailable Unavailable Boo, Sammi Lj LINE APPLIANCE ASSEMBLER Unavailable Unavailable Johnston, Sammi Lj LINE APPLIANCE ASSEMBLER Unavailable Unavailable Johnston, Sammi Lj LINE APPLIANCE ASSEMBLER Unavailable Unavailable Boo, Sammi Lj LINE APPLIANCE ASSEMBLER Unavailable Unavailable Boo, Sammi Lj LINE APPLIANCE ASSEMBLER Unavailable Unavailable Boo, Sammi Lj LINE APPLIANCE ASSEMBLER Unavailable Unavailable Johnston, Sammi Lj LINE APPLIANCE ASSEMBLER Unavailable Unavailable Johnston, Sammi Lj LINE APPLIANCE ASSEMBLER Unavailable Unavailable Johnston, Sammi Lj LINE APPLIANCE ASSEMBLER Unavailable Unavailable Johnston, Sammi Lj LINE APPLIANCE ASSEMBLER Unavailable Unavailable Feola, T Divya PA Unavailable [...] Unavailable Tabitha, Roberta DO Unavailable Unavailable Tabitha, Rboerta DO Unavailable Unavailable Tabitha, Roberta DO Unavailable [...] Roberta DO Unavailable Unavailable Jame, N Trip NEGATIVE DEVELOPER Unavailable Unavailable Jame, N Trip NEGATIVE DEVELOPER Unavailable Unavailable [place], N Trip NEGATIVE DEVELOPER Unavailable Unavailable [place], N Trip NEGATIVE DEVELOPER Unavailable Unavailable [place], N Trip NEGATIVE DEVELOPER Unavailable Unavailable Jame, N Trip NEGATIVE DEVELOPER Unavailable Unavailable [place], N Trip NEGATIVE DEVELOPER Unavailable Unavailable Jame, N Trip NEGATIVE DEVELOPER Unavailable Unavailable [place], N Trip NEGATIVE DEVELOPER Unavailable Unavailable Jame, N Trip NEGATIVE DEVELOPER Unavailable Unavailable Jame, N Trip NEGATIVE DEVELOPER Unavailable Unavailable [place], N Trip NEGATIVE DEVELOPER Unavailable Unavailable [place], N Trip NEGATIVE DEVELOPER Unavailable Unavailable Jame, N Trip NEGATIVE DEVELOPER Unavailable Unavailable Jame, N Trip NEGATIVE DEVELOPER Unavailable Unavailable Jame, N Trip NEGATIVE DEVELOPER Unavailable Unavailable [place], N Trip NEGATIVE DEVELOPER Unavailable Unavailable [place], N Trip NEGATIVE DEVELOPER Unavailable Unavailable Jame, N Trip NEGATIVE DEVELOPER Unavailable Unavailable Jame, N Trip NEGATIVE DEVELOPER Unavailable Unavailable [place], N Trip NEGATIVE DEVELOPER Unavailable Unavailable Jame, N Trip NEGATIVE DEVELOPER Unavailable Unavailable [place], N Trip NEGATIVE DEVELOPER Unavailable Unavailable Jame, N Trip NEGATIVE DEVELOPER Unavailable Unavailable [place], N Trip NEGATIVE DEVELOPER Unavailable Unavailable Jame, N Trip NEGATIVE DEVELOPER Unavailable Unavailable [place], N Trip NEGATIVE DEVELOPER Unavailable Unavailable Jame, N Trip NEGATIVE DEVELOPER Unavailable Unavailable [place], N Trip NEGATIVE DEVELOPER Unavailable Unavailable [place], N Trip NEGATIVE DEVELOPER Unavailable Unavailable [place], N Trip NEGATIVE DEVELOPER Unavailable Unavailable [place], N Trip NEGATIVE DEVELOPER Unavailable Unavailable [place], N Trip NEGATIVE DEVELOPER Unavailable Unavailable Cliff AMAYA MD Unavailable Unavailable [...] is protected by Article 27-F of the [facility] Public Health law. If you continue you may have access to information: Regarding HIV / AIDS; Provided by facilities licensed or operated by the [facility] Office of Mental Health; or Provided by the [facility] Office for People With Developmental Disabilities. If such information is present, then the following [facility] mandated warning applies: This information has [...] law may result in a fine or penitentiary sentence or both. A general authorization for the release of medical or other information is NOT sufficient authorization for further disc losure. Family History Family Member Name Family Member Gender Family Member Status Date o f Status Description Data Source(s) Unknown Unknown Problem [facility] ([facility], [facility]) Unknown Unknown Encounters Encounter Providers Location Date Indications Data Source(s ) Outpatient Attender: Divya REYES 021 11:53:12 AM EDT - 05/01/2021 12:47:27 PM EDT [facility]Tap ([facility] ) Outpatient Attender: Roberta Christianson 03/09 09:00:00 AM EDT MEDENT ([facility] ) Outpatient Attender: Trip Kilgore NP [email or web address] 021 12:00:00 AM EDT - 10/24/2020 02:35:08 PM EDT [facility] Outpatient Attender: Roberta Lu DO Landon Hope 08/24 07:00:00 AM EST MEDENT ([facility] ) Outpatient Attender: Trip Kilgore NP [email or web address] 020 12:00:00 AM EST - 06/13/2020 10:48:55 AM EST [facility] Outpatient Attender: CAROL Duque/Mady/Yan ochoa/Amrita 03/22/2020 08:30:00 AM EDT MEDENT ([facility]) Office Visit Attender: Lj Duque/Mady/Sumit/Malik jordan 03/17/2020 01:30:00 PM EDT MEDENT ([facility]) Medications Medication Brand Name Start Date Product Form Dose Route Admi nistrative Instructions Pharmacy Instructions Status Indications Reaction Description Data Source(s) Hydrochlorothiazide 12.5 MG Oral Capsule hydrochlorothiazide (MICROZIDE) 12.5 MG capsule hydrochlorothiazide (MICROZIDE) 12.5 MG capsule 2020 12:00:00 AM EDT active [facility] Sulfasalazine 500 MG Oral Tablet sulfaSALAzine (AZULFI DINE) 500 MG tablet sulfaSALAzine (AZULFIDINE) 500 MG tablet 09/21/2020 12:00:00 AM EST active [facility] Budesonide 3 MG Delayed Release Oral Cap tosin budesonide (ENTOCORT EC) 3 MG 24 hr capsule budesonide (ENTOCORT EC) 3 MG 24 hr capsule 09/03/2020 12:00 :00 AM EST active [facility] Budesonide 3 MG Delayed Release Oral Capsule Budesonide 07/25/2020 12:00:00 AM EST ORAL active MEDENT ([facility], ) Losartan Potassium 100 MG Oral Tablet losartan (COZAAR ) 100 MG tablet losartan (COZAAR) 100 MG tablet 07/23/2020 12:00:[address] [facility] Clenpiq Clenpiq 05/20/2020 12:00:00 AM EST complet ed MEDENT ([facility], ) Bisacodyl 5 MG Delayed Release Oral Tablet [Dulcolax] Dulcol ax 05/20/2020 12:00:00 AM EST completed MED[facility] ([facility], ) POLYETHYLENE GLYCOL 3350 105 MG/ML / Pot assium Chloride 0.01367 MEQ/ML / Sodium Bicarbonate 0.017 MEQ/ML / Sodium Chloride 0.0479 MEQ/ML Oral Solution [GaviLyte-N] Gavilyte-N With Flavor Pack 05/20/2020 12:00:00 AM EST completed MEDENT ([facility], ) Budesonide 3 MG Delayed Release Oral Capsule Budesonide 03/22/2020 12:00:00 AM EDT ORAL completed MED[facility] ([facility], ) Hydrochlorothiazide 12.5 MG / Losartan P otassium 100 MG Oral Tablet losartan- hydrochlorothiazide (HYZAAR) 100-12.5 MG per tablet losartan-hydrochlorothiazide (HYZAAR) 100-12.5 MG per tablet 07/18/2012 12:00:00 AM EST aborted daily [facility] Insurance Providers Payer name Policy type / Coverage type Policy ID Covered constitution party ID Covered constitution party's relationship to priest Policy Priest Plan Information KeyOwner/[employer] Commercial [id number] Family Dependent 802 [facility] [employer] Medigap Part B [id number] Family Dependent [id number] [employer]Owner[employer] Commercial [id number] Self 802 [facility] [employer] Medigap Part B [id number] Self [id number] [facility] MEDICAID [id number] xxxxxxxxx [id number] [facility] MEDICAID [id number] Rafaela [id number] [employer] [id number] Self [id number] BC[place] 306/806 [id number] SP [id number] BS [place] Commercial [id number] Self [id number] BS [place] [employer] Commercial [id number] Self [id number] 00 BS [place] [employer] Commercial [id number] Self [id number] 00 BS [place] [employer] Commercial [id number] Self [id number] 00 BS [place] [employer] [id number] Self [id number] BS [place] [employer] Commercial [id number] 00 [id number] Self [id number] 00 BS [place] [employer] Commercial [id number] 00 [id number] Self [id number] 00 [employer] BCBS B [id number] S VYS [id number] BS Of [place] Commercial [id number] Family Dependent SELF PAY UNAVAILABLE SP UNAVAILA BLE SELF PAY [id number] [facility] COMM[facility] PLAN [facility] [id number] SP [id number] [place]BS [place] PPO 302/307 [id number] [id number] [facility] [employer] [facility] [id number] SP [id number] [place] [id number] SP [id number] SELF PAY ONLY [id number] SP [id number] MEDICAID M [id number] S [id number] MEDICAID M [id number] S [id number] MEDICAID M UNAVAILABLE [id number] S UNAVAILA BLE Problems, Conditions, and Diagnoses Code Display Name Description Problem Type Effective Dates Data Source(s) I10 Essential (primary) hypertension Essential (primary) h ypertension Diagnosis 10/24/2020 02:00:[address] 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 E78.00 Pure hypercholesterolemia, unspecified P ure hypercholesterolemia, unspecified Diagnosis 10/24/2020 02:00:[address] [facility] Surgeries/Procedures Procedure Description Date Indications Data Source(s) Mammogram 03/09/2021 12:00:00 AM EDT GEM ([facility]) OFFICE OUTPATIENT VISIT 25 MINUTES 03/09/2021 12:00:00 AM EDT RAFA ([facility]) Diabetic Retinal Eye Exam 11/02/2020 12:00:00 AM EDT MEDDOUGLAS ([facility]) ECG ROUTINE ECG W/LEAST 12 LDS W/I&R <td>POCT AMB EKG</td><td>Routine</td><td>06/13/2020 10:21 AM EST</td><td> Coronary artery disease involving habematolel coronary artery of habematolel heart without angina pectoris</td><td> </td> 06/13/2020 03:21:00 PM EST Coronary artery disease involving habematolel coronary artery of habematolel heart without angina pectoris [facility] Coronary artery disease involving habematolel coronary artery of habematolel heart without angina pectoris Colonoscopy Flexible Proximal To Splenic Flexure W/Biopsy Si ngle/ 05/24/2020 12:00:00 AM EST [facility] ([facility]) Excision Tumor Back/Flank, Soft Tissue, Subcutaneous, > 3 CM 03/08/2020 12:00:00 AM EDT MED[facility] ([facility]) Results ID Date Data Source [id number] 03/09/2021 08:37:00 AM EDT MEDENT ([facility]) Name Value Range Interpretation Code Description Data Alison rce(s) Supporting Document(s) Thyrotropin [Units/volume] in Serum or Plasma by Detec tion limit <= 0.05 mIU/L 1.94 uIU/mL 0.36-3.74 MEDENT ([facility] ) ID Date Data Source [id number] 03/09/2021 08:37:00 AM EDT MEDENT ([facility]) Name Value Range Interpretation Code Description Data Alison rce(s) Supporting Document(s) Glucose [Mass/volume] in Serum or Plasma 80 mg/dL 74-99 MEDENT ([facility]) 100-125 mg/dL PRE-DIABETES/FASTING >126 mg/dL DIABETES/FASTING Creatinine 0.9 mg/dL 0.6-1.3 [facility]) Urea nitrogen [Mass/volume] in Serum or Plasma 14 mg/dL 7-18 MED[facility] ([facility]) Sodium [Moles/volume] in Serum or Plasma 141 meq/L 136-145 MEDENT ([facility]) Potassium [Moles/volume] in Serum or Plasma 3.9 meq/L 3.5-5.1 MED[facility] ([facility]) Carbon dioxide, total [Moles/volume] in Serum or Plasma 32 meq/L 21 -32 MED[facility] ([facility]) Chloride [Moles/volume] in Serum or Plasma 103 meq/L 98-107 MED[facility] ([facility]) Calcium [Mass/volume] in Serum or Plasma 9.7 mg/dL 8.5-10.1 MED[facility] ([facility]) Glomerular filtration rate/1.73 sq M pre dicted among non-blacks [Volume Rate/Area] in Serum or Plasma by Creatinine-based formula (MDRD) Laboratory test result [facility] Glomerular filtration rate/1.73 sq M pre dicted among blacks [Volume Rate/Area] in Serum or Plasma by Creatinine-based formula (MDRD) Laboratory test result [facility] <content>CHRONIC KIDNEY DISEASE STAGING PER NKF</content>
<content></content>
<content>STAGE I & II GFR >= 60 NORMAL TO MILDLY DECREASED</content>
<content>STAGE III GFR 30-59 MODERATELY DECREASED</content>
<content>STAGE IV GFR 15-29 SEVERELY DECREASED</content>
<content>STAGE V GFR <15 VERY LITTLE GFR LEFT</content>
<content>ESRD GFR <15 ON LECTURER IN MARKETING</content>
<content></content> ID Date Data Source [id number] 08/24/2020 08:41:00 AM EST MEDENT ([facility]) Name Value Range Interpretation Code Description Data Alison rce(s) Supporting Document(s) Cobalamin (Vitamin B12) [Mass/volume] in Serum or Plasma 586 pg/mL 2 47-911 [facility] VITAMIN B12 NORMAL RANGE NORMAL 247 - 911 PG/ML INDETERMINATE 211 - 246 PG/ML DEFICIENT LESS THAN 211 PG/ML ID Date Data Source [id number] 08/24/2020 08:41:00 AM EST MEDENT ([facility]) Name Value Range Interpretation Code Description Data Alison rce(s) Supporting Document(s) Thyrotropin [Units/volume] in Serum or Plasma by Detec tion limit <= 0.05 mIU/L 0.58 uIU/mL 0.36-3.74 [facility] ID Date Data Source [id number] 08/24/2020 08:41:00 AM EST [facility] Name Value Range Interpretation Code Description Data Alison rce(s) Supporting Document(s) Glucose [Mass/volume] in Serum or Plasma 97 mg/dL 74-99 MED[facility] ([facility]) 100-125 mg/dL PRE-DIABETES/FASTING >126 mg/dL DIABETES/FASTING Urea nitrogen [Mass/volume] in Serum or Plasma 21 mg/dL 7-18 MED[facility] ([facility]) Sodium [Moles/volume] in Serum or Plasma 143 meq/L 136-145 MED[facility] ([facility]) Potassium [Moles/volume] in Serum or Plasma 4.0 meq/L 3.5-5.1 [facility] ([facility]) Creatinine 0.9 mg/dL 0.6-1.3 [facility] ([facility]) Calcium [Mass/volume] in Serum or Plasma 9.4 mg/dL 8.5-10.1 MED[facility] ([facility]) Chloride [Moles/volume] in Serum or Plasma 102 meq/L 98-107 MED[facility] ([facility]) Carbon dioxide, total [Moles/volume] in Serum or Plasma 27 meq/L 21 -32 MED[facility] ([facility]) Total Bilirubin 0.6 mg/dL 0.2-1.0 MEDENT ([facility]) Aspartate aminotransferase [Enzymatic activity/volume] in Serum or Plasma 27 U/L 15-37 MEDENT ([facility] ) Alkaline phosphatase isoenzyme [Units/volume] in Serum or Pl asma 134 mg/dL 46-116 MED[facility] ([facility]) NOTE: RESULT VERIFIED. Alanine aminotransferase [Enzymatic activity/volume] in Seru m or Plasma 60 U/L 12-78 MEDENT ([facility]) Albumin [Mass/volume] in Serum or Plasma 3.9 g/dL 3.4-5.0 MED[facility] ([facility]) Proteinase 3 Ab [Units/volume] in Serum 7.8 g/dL 6.4-8.2 MED[facility] ([facility]) A/G Ratio 1.00 CALC 1.00-1.90 MED[facility] ([facility]) Glomerular filtration rate/1.73 sq M pre dicted among non-blacks [Volume Rate/Area] in Serum or Plasma by Creatinine-based formula (MDRD) Laboratory test result [facility] Glomerular filtration rate/1.73 sq M pre dicted among blacks [Volume Rate/Area] in Serum or Plasma by Creatinine-based formula (MDRD) Laboratory test result [facility] <content>CHRONIC KIDNEY DISEASE STAGING PER NKF</content>
<content></content>
<content>STAGE I & II GFR >= 60 NORMAL TO MILDLY DECREASED</content>
<content>STAGE III GFR 30-59 MODERATELY DECREASED</content>
<content>STAGE IV GFR 15-29 SEVERELY DECREASED</content>
<content>STAGE V GFR <15 VERY LITTLE GFR LEFT</content>
<content>ESRD GFR <15 ON LECTURER IN MARKETING</content>
<content></content> ID Date Data Source [id number] 08/24/2020 08:41:00 AM EST MEDENT ([facility]) Name Value Range Interpretation Code Description Data Alison rce(s) Supporting Document(s) Erythrocytes [#/volume] in Blood by Automated count 3.51 x10*6/UL 4.2 0-6.30 MED[facility] ([facility]) Leukocytes [#/volume] in Blood by Automated count 6.4 x10*3/UL 4.1-10 .9 [facility] Hemoglobin [Mass/volume] in Blood 12.6 g/dL 12.0-18.0 [facility] Hematocrit [Volume Fraction] of Blood by Automated count 36.8 % 3 7.0-51.0 [facility] MCV 104.8 fL 80.0-97.0 MED[facility] ([facility]) MCH 36.0 pg 26.0-32.0 [facility] ([facility]) MCHC 34.4 g/dL 31.0-38.0 [facility] ([facility]) Erythrocyte distribution width [Ratio] by Automated count 13.6 % 11.6-13.7 [facility] ([facility]) MPV 8.5 FL 7.8-11.0 [facility] Lymph % 20.9 % 10.0-58.5 [facility] ([facility]) Platelets [#/volume] in Blood by Automated count 310 x10*3/UL 140-440 [facility] Mid % 6.3 % 1.7-9.3 [facility] Neut % 72.8 % 37.0-92.0 [facility] Lymph # 1.3 x10*3/UL 0.6-4.1 [facility] ([facility]) Neut # 4.6 x10*3/UL 2.0-7.8 [facility] ([facility]) Mid # 0.5 x10*3/UL 0.1-0.6 [facility] ([facility]) ID Date Data Source [id number] 07/18/2020 09:30:[address] [facility] ([facility]) Name Value Range Interpretation Code Description Data Alison rce(s) Supporting Document(s) Gastrointestinal (GI) Panel Laboratory test [facility] This Gastrointestinal PCR Panel detects the [...] NUCLEIC ACID PCR ID Date Data Source [id number] 07/18/2020 09:30:[address] [facility] ([facility]) Name Value Range Interpretation Code Description Data Alison rce(s) Supporting Document(s) Result 1 Laboratory test result Normal (applies to non-n umeric results) [facility]) No ova, cysts, or parasites seen. . One negative specimen does not rule out the possibility of a parasitic infection. Performed at: [address] [id number] [employer] Operator: Tashia Sotelo MD, Phone: [phone] Performed at: RN - [facility] [address] [id number] [employer] Operator: Lucy Johnson MD, Phone: [phone] O+P Exam Laboratory test result Normal (applies to non-n umeric results) [facility] ) These results were obtained using wet pr eparation(s) and trichrome stained smear. This test does not include testing for Cryptosporidium parvum, Cyclospora, or Microsporidia. ID Date Data Source [id number] 07/18/2020 09:30:00 AM EST [facility] Name Value Range Interpretation Code Description Data Alison rce(s) Supporting Document(s) Bacteria identified in Stool by Culture Laboratory test result [facility]) Lactoferrin [Presence] in Stool by Immunoassay Laboratory test r esult Abnormal (applies to non-numeric results) [facility]) Clostridium difficile DNA [Presence] in Unspecified specimen by Probe and target amplification method Laboratory test result [facility]) ID Date Data Source [id number] 07/18/2020 09:30:00 AM EST [facility] ([facility]) Name Value Range Interpretation Code Description Data Alison rce(s) Supporting Document(s) Calprotectin [Mass/mass] in Stool 223 ug/g 0-120 Above high no rmal [facility]) <content>Concentration Interpretatio n Follow-Up</content>
<content><16 - 50 ug/g Normal None</content>
<content>>50 -120 ug/g Borderline Re-evaluate in 4-6 weeks</content>
<content>>120 ug/g Abnormal Repeat as clinically</content>
<content>indicated</content>
<content></content> ID Date Data Source [id number] 07/11/2020 12:56:00 PM EST [facility] Name Value Range Interpretation Code Description Data Alison rce(s) Supporting Document(s) QuantiFERON Criteria Laboratory test result [facility]) . The QuantiFERON-TB Gold Plus result is determined by subtracting the Nil value from either TB antigen (Ag) tube. The mitogen tube serves as a control for the test. QuantiFERON TB1 Ag Value 0.04 IU/ml MEDE NT ([facility]) QuantiFERON Mitogen Value Laboratory test result MED[facility] ([facility]) QuantiFERON TB2 Ag Value 0.05 IU/ml MEDE NT ([facility]) QuantiFERON Nil Value 0.04 IU/ml [facility] ([facility]) QuantiFERON-TB Gold Plus Laboratory test result MED[facility] ([facility]) . The specimen received for QuantiFERON testing was incubated by the ordering institution. Specific procedures outlined in our Directory of Services and in the package insert for the QuantiFERON Gold (In Tube) test must be followed to enable for proper stimulation of cells for the production of interferon gamma. Performed at: - [facility] [id number] [employer] Operator: Lucy Johnson MD, Phone: [phone] ID Date Data Source [id number] 07/11/2020 12:56:00 PM EST MEDENT ([facility]) Name Value Range Interpretation Code Description Data Alison rce(s) Supporting Document(s) Erythrocyte sedimentation rate by Westergren method 29 mm/hr 0-30 [facility] ([facility]) ID Date Data Source [id number] 07/11/2020 12:56:00 PM EST MED[facility] ([facility]) Name Value Range Interpretation Code Description Data Alison rce(s) Supporting Document(s) White Blood Count 6.1 10 4.0-10.0 [facility] ([facility]) Hemoglobin 12.3 g/dL 12.0-15.5 [facility] Red Blood Count 3.38 10 4.00-5.40 [facility] ([facility]) Hematocrit 36.4 % 36.0-47.0 [facility]) Mean Corpuscular Hemoglobin 36.4 pg 27.0-33.0 [place] [facility] ([facility]) Mean Corpuscular Volume 107.7 fl 80.0-96.0 [facility] ([facility]) Platelet Count, Automated 290 10 150-450 MEDE NT ([facility]) Red Cell Distribution Width 13.5 % 11.5-14.5 [place] [facility]ENT ([facility]) Mean Corpuscular HGB Conc 33.8 g/dL 32.0-36.5 MEDE NT ([facility]) [place] % 5.4 % 0.0-5.0 [facility] Lymph % 23.1 % 24.0-44.0 [facility]) Neutrophils % 67.4 % 36.0-66.0 [facility] ([facility] [facility] Immature Granulocyte % 0.3 % 0-3.0 [facility] ([facility]) Eos % 3.1 % 0.0-3.0 [facility]) Baso % 0.7 % 0.0-1.0 [facility] Neutrophils # 4.1 10 1.5-8.5 [facility] ([facility]) Nucleated Red Blood Cell % 0.0 % 0-0 MED ENT ([facility]) Eos # 0.2 10 0.0-0.5 [facility]) Lymph # 1.4 10 1.5-5.0 [facility]) [place] # 0.3 10 0.0-0.8 [facility] Baso # 0.0 10 0.0-0.2 [facility] ID Date Data Source [id number] 07/11/2020 12:56:00 PM EST MED[facility] ([facility], ) Name Value Range Interpretation Code Description Data Alison rce(s) Supporting Document(s) QuantiFERON Criteria Laboratory test result Norm al (applies to non-numeric results) [facility], ) . The QuantiFERON-TB Gold Plus result is determined by subtracting the Nil value from either TB antigen (Ag) tube. The mitogen tube serves as a control for the test. QuantiFERON TB1 Ag Value 0.04 IU/ml Normal (applies to non -numeric results) [facility] ([facility]) QuantiFERON TB2 Ag Value 0.05 IU/ml Normal (applies to non -numeric results) [facility] ([facility]) QuantiFERON Mitogen Value Laboratory test result Normal (applies to non- numeric results) [facility] ([facility]) QuantiFERON Nil Value 0.04 IU/ml Normal (applies to non-nu meric results) [facility] ([facility]) QuantiFERON-TB Gold Plus Laboratory test result Normal (applies to non-numeric results) [facility]) . The specimen received for QuantiFERON testing was incubated by the ordering institution. Specific procedures outlined in our Directory of Services and in the package insert for the QuantiFERON Gold (In Tube) test must be followed to enable for proper stimulation of cells for the production of interferon gamma. Performed at: RN - [facility] [address] [id number] [employer] Operator: Lucy Johnson MD, Phone: [phone] ID Date Data Source [id number] 07/11/2020 12:56:00 PM EST [facility] ([facility]) Name Value Range Interpretation Code Description Data Alison rce(s) Supporting Document(s) Ast/Sgot 58 U/L 7-37 Above high normal [facility] ([facility]) Alt/SGPT 89 U/L 12-78 Above high normal [facility] ([facility]) Bilirubin,Total 0.6 mg/dL 0.2-1.0 Normal (applies to non-numeric results) [facility] ([facility]) Alkaline Phosphatase 108 U/L 45-117 Normal (applies to non-num carlos eduardo results) [facility]) Bilirubin,Direct 0.2 mg/dL 0.0-0.2 Normal (applies to non-numeric results) [facility] ([facility]) Total Protein 7.7 GM/DL 6.4-8.2 Normal (applies to non-numeric re sults) [facility]) Albumin 4.0 GM/DL 3.2-5.2 Normal (applies to non-numeric resul ts) [facility] ([facility]) Albumin/Globulin Ratio 1.1 1.2-2.2 Below low normal [facility] ([facility]) ID Date Data Source [id number] 07/11/2020 12:56:00 PM EST [facility] ([facility]) Name Value Range Interpretation Code Description Data Alison rce(s) Supporting Document(s) Glucose, Fasting 90 mg/dL 70-100 Normal (applies to non-numeric results) [facility] ([facility]) Blood Urea Nitrogen 20 mg/dL 7-18 Above high normal [facility] ([facility]) Glomerular Filtration Rate Laboratory test result Normal (applies to non- numeric results) [facility]) <content>Units are mL/min/1.73 m2</content>
<content></content>
<content>Chronic Kidney Disease Staging per NKF:</content>
<content></content>
<content>Stage I & II GFR >=60 Normal to Mildly Decreased</content>
<content>Stage III GFR 30- 59 Moderately Decreased</content>
<content>Stage IV GFR 15-29 Severely Decreased</content>
<content>Stage V GFR <15 Very Little GFR Left</content>
<content>ESRD GFR <15 on LECTURER IN MARKETING</content>
<content></content> Sodium Level 139 meq/L 136-145 Normal (applies to non-numeric res ults) [facility] ([facility]) Creatinine For GFR 0.90 mg/dL 0.55-1.30 Normal (applies to non -numeric results) [facility] ([facility]) Chloride Level 106 meq/L 98-107 Normal (applies to non-numeric r esults) [facility] ([facility]) Carbon Dioxide Level 26 meq/L 21-32 Normal (applies to non-num carlos eduardo results) [facility] ([facility]) Potassium Serum 4.2 meq/L 3.5-5.1 Normal (applies to non-numeric results) [facility] ([facility], ) Anion Gap 7 meq/L 8-16 [facility] Calcium Level 9.6 mg/dL 8.5-10.1 Normal (applies to non-numeric re sults) [facility] ([facility]) ID Date Data Source [id number] 07/11/2020 12:56:00 PM EST [facility] ([facility]) Name Value Range Interpretation Code Description Data Alison rce(s) Supporting Document(s) White Blood Count 6.1 10 4.0-10.0 Normal (applies to non-numeri c results) [facility] Red Blood Count 3.38 10 4.00-5.40 Below low normal MED ENT ([facility]) Hemoglobin 12.3 g/dL 12.0-15.5 Normal (applies to non-numeric resul ts) [facility]) Mean Corpuscular Volume 107.7 fl 80.0-96.0 Above high normal [facility] ([facility]) Hematocrit 36.4 % 36.0-47.0 Normal (applies to non-numeric resul ts) [facility]) Mean Corpuscular Hemoglobin 36.4 pg 27.0-33.0 Above high normal [facility] ([facility]) Red Cell Distribution Width 13.5 % 11.5-14.5 Norm al (applies to non-numeric results) [facility]) Mean Corpuscular HGB Conc 33.8 g/dL 32.0-36.5 Normal (applies to non-numeric results) [facility] ([facility]) Platelet Count, Automated 290 10 150-450 Normal (applies to non-numeric results) [facility]) Lymph % 23.1 % 24.0-44.0 Below low normal [facility] ( [facility]) Neutrophils % 67.4 % 36.0-66.0 Above high normal MEDE NT ([facility]) [place] % 5.4 % 0.0-5.0 Above high normal [facility] ([facility]) Eos % 3.1 % 0.0-3.0 Above high normal [facility] ([facility]) Immature Granulocyte % 0.3 % 0-3.0 Normal (applies to non-n umeric results) [facility] ([facility]) Baso % 0.7 % 0.0-1.0 Normal (applies to non-numeric resul ts) [facility] ([facility]) Nucleated Red Blood Cell % 0.0 % 0-0 Normal (applies to n on-numeric results) [facility] ([facility]) Lymph # 1.4 10 1.5-5.0 Below low [facility] Neutrophils # 4.1 10 1.5-8.5 Normal (applies to non-numeric re sults) [facility] ([facility]) Eos # 0.2 10 0.0-0.5 Normal (applies to non-numeric resul ts) [facility] ([facility]) Baso # 0.0 10 0.0-0.2 Normal (applies to non-numeric resul ts) [facility] ([facility]) [place] # 0.3 10 0.0-0.8 Normal (applies to non-numeric resul ts) [facility] ([facility]) ID Date Data Source [id number] 07/11/2020 12:56:00 PM EST [facility] ([facility]) Name Value Range Interpretation Code Description Data Alison rce(s) Supporting Document(s) Hepatitis B virus surface Ab [Units/volume] in Serum 61.2 mIU/mL Normal (applies to non-numeric results) [facility] ([facility]) Status of Immunity A nti-HBs Level - Inconsistent with Immunity 0.0 - 9.9 Consistent with Immunity >9.9 Hepatitis B virus core Ab [Presence] in Serum Laboratory test re sult Normal (applies to non-numeric results) [facility] ([facility]) Performed at: BN - [address] [id number] [employer] Operator: Tashia Sotelo MD, Phone: [phone] Performed at: [facility] [address] [id number] [employer] Operator: Lucy Johnson MD, Phone: [phone] Hepatitis B virus surface Ag [Presence] in Serum or Pl asma by Immunoassay Laboratory test result Normal (applies to non-numeric results) [facility] ([facility]) Hepatitis C virus Ab [Units/volume] in Serum by Immunoassay 0.2 INDEX Normal (applies to non-numeric results) [facility] ([facility]) Negative Not infected with HCV, unless recent infection is suspected or other evidence exists to indicate HCV infection. ID Date Data Source [id number] 07/11/2020 12:56:00 PM EST [facility] ([facility]) Name Value Range Interpretation Code Description Data Alison rce(s) Supporting Document(s) C reactive protein [Mass/volume] in Serum or Plasma by High sensitivity method 0.30 mg/dL 0.00-0.30 Normal (applies to non-numeric results) [facility] ([facility]) Erythrocyte sedimentation rate by Westergren method 29 mm/hr 0-30 Normal (applies to non-numeric results) [facility] ([facility]) ID Date Data Source [id number] 07/11/2020 12:56:00 PM EST [facility]) Name Value Range Interpretation Code Description Data Alison rce(s) Supporting Document(s) Anti-Saccharomyces Cerev. IgG Laboratory test result 0.0-24.9 Normal (applies to non-numeric results) [facility] ([facility] ) <content>Negative <20.0</content >
<content>Equivocal 20.1 - 24.9</content>
<content>Positive >or= 25.0</content>
<content></content> Anti-Saccharomyces Cerev. IgA Laboratory test result 0.0-24.9 Normal (applies to non-numeric results) [facility] ([facility] ) <content>Negative <20.0</content>
<content>Equivocal 20.1 - [...]
<content>for both.</content>
<content></content> ID Date Data Source [id number] 07/11/2020 12:56:00 PM EST [facility] ([facility], ) Name Value Range Interpretation Code Description Data Alison rce(s) Supporting Document(s) Perinuclear AB Anca-P Laboratory test result Nor mal (applies to non-numeric results) [facility] ([facility], ) The presence of positive fluorescence ex hibiting P-ANCA or C-ANCA patterns alone is not specific for the diagnosis of Svetlana's Granulomatosis (WG) or microscopic polyangiitis. Decisions about treatment should not be based solely on ANCA IFA results. The [employer] Consensus recommends follow up testing of positive sera with both OR- 3 and MPO-ANCA enzyme immunoassays. As m any as 5% serum samples are positive only by EIA. Ref. AM J Clin Pathol 1999;111:507-513. Cytoplasmic Neutrop AB Anca-C Laboratory test result Normal (applies to non- numeric results) [facility], ) Anca-Atypical Laboratory test result Normal (applies t o non-numeric results) [facility], ) The atypical pANCA pattern has been obse rved in a significant percentage of patients with ulcerative colitis, primary sclerosing cholangitis and autoimmune hepatitis. ID Date Data Source [id number] 07/11/2020 12:55:00 PM EST [facility] ([facility]) Name Value Range Interpretation Code Description Data Alison rce(s) Supporting Document(s) Hepatitis B virus core Ab [Presence] in Serum Laboratory test result [facility] ([facility]) Performed at: - [address] [id number] [employer] Operator: Tashia Sotelo MD, Phone: [phone] Performed at: [facility] [address] [id number] [employer] Operator: Lucy Johnson MD, Phone: [phone] ID Date Data Source [id number] 07/11/2020 12:55:00 PM EST [facility] ([facility]) Name Value Range Interpretation Code Description Data Alison rce(s) Supporting Document(s) Anti-Saccharomyces Cerev. IgG Laboratory test result 0.0-24.9 [facility] ([facility]) <content>Negative <20.0</content >
<content>Equivocal 20.1 - 24.9</content>
<content>Positive >or= 25.0</content>
<content></content> Anti-Saccharomyces Cerev. IgA Laboratory test result 0.0-24.9 [facility] <content>Negative <20.0</content>
<content>Equivocal 20.1 - 24.9</content>
<content>Positive [...]
<content>for both.</content>
<content></content> ID Date Data Source [id number] 07/11/2020 12:55:00 PM EST [facility] Name Value Range Interpretation Code Description Data Alison rce(s) Supporting Document(s) Hepatitis B virus surface Ab [Units/volume] in Serum 61.2 mIU/mL [facility] Status of Immunity A nti-HBs Level - Inconsistent with Immunity 0.0 - 9.9 Consistent with Immunity >9.9 ID Date Data Source [id number] 07/11/2020 12:55:00 PM EST [facility]) Name Value Range Interpretation Code Description Data Alison rce(s) Supporting Document(s) Anca-Atypical Laboratory test result [facility] The atypical pANCA pattern has been obse rved in a significant percentage of patients with ulcerative colitis, primary sclerosing cholangitis and autoimmune hepatitis. Perinuclear AB Anca-P Laboratory test result [facility] The presence of positive fluorescence ex hibiting P-ANCA or C-ANCA patterns alone is not specific for the diagnosis of Svetlana's Granulomatosis (WG) or microscopic polyangiitis. Decisions about treatment should not be based solely on ANCA IFA results. The [employer] Consensus recommends follow up testing of positive sera with both OR- 3 and MPO-ANCA enzyme immunoassays. As m any as 5% serum samples are positive only by EIA. Ref. AM J Clin Pathol 1999;111:507-513. Cytoplasmic Neutrop AB Anca-C Laboratory test result [facility] ID Date Data Source [id number] 07/11/2020 12:55:00 PM EST [facility]) Name Value Range Interpretation Code Description Data Alison rce(s) Supporting Document(s) C reactive protein [Mass/volume] in Serum or Plasma by High sensitivity method 0.30 mg/dL 0.00-0.30 [facility] ([facility] ) Hepatitis B virus surface Ag [Presence] in Serum or Pl asma by Immunoassay Laboratory test result [facility] ([facility]) ID Date Data Source [id number] 07/11/2020 12:55:00 PM EST [facility] ([facility]) Name Value Range Interpretation Code Description Data Alison rce(s) Supporting Document(s) Creatinine For GFR 0.90 mg/dL 0.55-1.30 [facility] ([facility]) Glucose, Fasting 90 mg/dL 70-100 [facility] ([facility]) Blood Urea Nitrogen 20 mg/dL 7-18 [facility] ([facility]) Sodium Level 139 meq/L 136-145 [facility] ([facility]) Glomerular Filtration Rate Laboratory test result [facility] ([facility]) <content>Units are mL/min/1.73 m2</content>
<content></content>
<content>Chronic Kidney Disease Staging per NKF:</content>
<content></content>
<content>Stage I & II GFR >=60 Normal to Mildly Decreased</content>
<content>Stage III GFR 30- 59 Moderately Decreased</content>
<content>Stage IV GFR 15-29 Severely Decreased</content>
<content>Stage V GFR <15 Very Little GFR Left</content>
<content>ESRD GFR <15 on LECTURER IN MARKETING</content>
<content></content> Carbon Dioxide Level 26 meq/L 21-32 [facility] ( [facility] Chloride Level 106 meq/L 98-107 [facility] ([facility]) Potassium Serum 4.2 meq/L 3.5-5.1 [facility] ([facility]) Calcium Level 9.6 mg/dL 8.5-10.1 [facility] ([facility]) Anion Gap 7 meq/L 8-16 [facility]) ID Date Data Source [id number] 07/11/2020 12:55:00 PM EST [facility] ([facility]) Name Value Range Interpretation Code Description Data Alison rce(s) Supporting Document(s) Alt/SGPT 89 U/L 12-78 [facility] ([facility]) Ast/Sgot 58 U/L 7-37 [facility] ([facility]) Alkaline Phosphatase 108 U/L 45-117 [facility] ([facility]) Bilirubin,Total 0.6 mg/dL 0.2-1.0 [facility] ([facility]) Bilirubin,Direct 0.2 mg/dL 0.0-0.2 [facility] ([facility]) Albumin/Globulin Ratio 1.1 1.2-2.2 [facility] ([facility]) Albumin 4.0 GM/DL 3.2-5.2 [facility] ([facility]) Total Protein 7.7 GM/DL 6.4-8.2 [facility] ([facility]) ID Date Data Source [id number] 07/11/2020 12:55:00 PM EST [facility] ([facility]) Name Value Range Interpretation Code Description Data [facility] rce(s) Supporting Document(s) Hepatitis C virus Ab [Units/volume] in Serum by Immunoassay 0.2 INDEX [facility] ([facility]) Negative Not infected with HCV, unless recent infection is suspected or other evidence exists to indicate HCV infection. ID Date Data Source [id number] 05/24/2020 10:40:00 AM EST [facility] ([facility], ) Name Value Range Interpretation Code Description Data [facility](s) Supporting Document(s) Surgical pathology study Laboratory test result [facility] ([facility], ) FINAL DIAGNOSIS A-Right colon, biopsy: [...] MD 05/25/2020 0917 ID Date Data Source [id number] 05/19/2020 12:00:00 PM EST [facility] Name Value Range Interpretation Code Description Data Alison rce(s) Supporting Document(s) SARS coronavirus 2 RNA [facility] This lab was ordered by [facility] and reported by [facility]. ID Date Data Source [id number] 03/08/2020 11:51:00 AM EDT [facility] Name Value Range Interpretation Code Description Data Alison rce(s) Supporting Document(s) Surgical pathology study Laboratory test result [facility] ([facility], ) FINAL DIAGNOSIS Lipoma, back, resection: Lipoma. 03/10/2020714 CLINICAL DIAGNOSIS Lipoma back 03/09/2020737 GROSS DIAGNOSIS Received in formalin labeled "lipoma" is one fragment of yellow-graham lobulated fibroadipose tissue measuring 7.0 x 4.5 x 1.2 cm. The specimen is serially sectioned and a territory service representative section is submitted of the lobulated adipose tissue. -SV 03/09/2020737 Signed JASVIR LEW MD 03/10/2020 0857 Procedure Social History Code Duration Value Status Description Data Source(s ) Smoking 06/13/2020 12:00:00 AM EST Former smoker completed Former smoker [facility] Vital Signs ID Date Data Source [id number] Name Value Range Interpretation Code Description Data Source(s) Oxygen saturation in Arterial blood by Pulse oximetry 98 % 98 % RAFA ([facility]) Systolic blood pressure 118 mm[Hg] 118 mm[Hg] M EDENT ([facility]) Diastolic blood pressure 80 mm[Hg] 80 mm[Hg] [facility] ([facility]) Heart rate 94 /min 94 /min [facility] ([facility]) Body height 65.25 [in_i] 65.25 [in_i] [facility] ([facility] 5'5.25" Body weight 184.00 [lb_av] 184.00 [lb_av] MEDEN T ([facility]) Body mass index (BMI) [Ratio] 30.4 kg/m2 30.4 k g/m2 [facility] ([facility]) Respiratory rate 16 /min 16 /min [facility] Body height 165.[address] [facility] Body mass index (BMI) [Ratio] 30.45 kg/m2 30.45 kg/m2 [facility] Body weight 83.[address] [facility] Systolic blood pressure 124 mm[Hg] 124 mm[Hg] M EDENT ([facility]) Diastolic blood pressure 78 mm[Hg] 78 mm[Hg] [facility] ([facility]) Heart rate 88 /min 88 /min [facility] ([facility]) Body height 65.25 [in_i] 65.25 [in_i] [facility] 5'5.25" Body weight 181.00 [lb_av] 181.00 [lb_av] MEDEN T ([facility]) Body mass index (BMI) [Ratio] 29.9 kg/m2 29.9 k g/m2 [facility] ([facility]) Body weight 180.00 [lb_av] 180.00 [lb_av] MEDEN T ([facility], ) Body mass index (BMI) [Ratio] 30.0 kg/m2 30.0 k g/m2 [facility] ([facility], ) Henefer body weight 125 [lb_av] 125 [lb_av] MEDEN T ([facility], ) Body weight 81.648 kg 81.648 kg MED[facility] ([facility], ) Body surface area Derived from formula 1.89 m2 1.89 m2 [facility] ([facility]) Systolic blood pressure 134 mm[Hg] 134 mm[Hg] [facility] Diastolic blood pressure 82 mm[Hg] 82 mm[Hg] [facility] ([facility]) Body height 65 [in_i] 65 [in_i] [facility] ([facility]) 5'5" Systolic blood pressure 120 mm[Hg] 120 mm[Hg] [facility] Diastolic blood pressure 82 mm[Hg] 82 mm[Hg] [facility] Heart rate 76 /min 76 /min [facility] Respiratory rate 16 /min 16 /min [facility] Body height 165.[address] [facility] Body weight 81.[address] [facility] Body mass index (BMI) [Ratio] 29.79 kg/m2 29.79 kg/m2 [facility] Systolic blood pressure 136 mm[Hg] 136 mm[Hg] [facility] ([facility]) Diastolic blood pressure 74 mm[Hg] 74 mm[Hg] [facility] ([facility]) Body height 65 [in_i] 65 [in_i] [facility] ([facility]) 5'5" Body weight 181.00 [lb_av] 181.00 [lb_av] MEDEN T ([facility]) Body mass index (BMI) [Ratio] 30.1 kg/m2 30.1 k g/m2 [facility] ([facility]) Henefer body weight 125 [lb_av] 125 [lb_av] MEDEN T ([facility]) Body weight 82.102 kg 82.102 kg [facility] ([facility]) Body surface area Derived from formula 1.90 m2 1.90 m2 [facility] ([facility]) Systolic blood pressure 120 mm[Hg] 120 mm[Hg] [facility] Body height 65 [in_i] 65 [in_i] MED[facility] ([facility], ) 5'5" Body weight 181.25 [lb_av] 181.25 [lb_av] DANNIE Olea ([facility], ) Body mass index (BMI) [Ratio] 30.2 kg/m2 30.2 k g/m2 [facility] ([facility], ) Body weight 82.215 kg 82.215 kg [facility] ([facility], ) Diastolic blood pressure 80 mm[Hg] 80 mm[Hg] [facility] ([facility]) Patient Treatment Plan of Care Planned Activity Planned Date Details Description Data Source (s) Hydrochlorothiazide 12.5 MG Oral Capsule 09/26/2020 12:00:[address] [facility] Sulfasalazine 500 MG Oral Tablet 09/21/2020 12:00:00 AM [facility] Budesonide 3 MG Delayed Release Oral Capsule 09/03/2020 12:00:00 AM [facility] Losartan Potassium 100 MG Oral Tablet 07/23/2020 12:00:00 AM [facility] Hydrochlorothiazide 12.5 MG / Losartan Potassium 100 M G Oral Tablet 07/18/2012 12:00:00 AM [facility]
--- NOTE | 2021-05-05 18:29 | HPEPDOC ---
General Date of Admission 05/05/2021 Date of Service: May 05, 2021 Chief Complaint The patient is a 60-year-old female admitted with a reason for visit of Weakness. Source: Patient History of Present Illness 60-year-old female with past medical history of Hypertension hyperlipidemia, coronary artery disease s/p stents, status post [place] in 2009, ulcerative colitis, rectal r/t colitis, hypothyroid presented to the ED for a syncopal episode that happened at home this morning. Patient was walking in her house when suddenly she felt dizzy lightheaded and passed out she fell to the floor hitting her head on the table counter. As soon as she fell to the floor she regained her consciousness. Patient has been sick for 1 week with cough, cold, malaise, weakness, chills and fever and on 05/02/2022 was diagnosed with Covid-19 infection. Patient is unvaccinated. In the ED she was found to be hypomagnesemic which was replaced. Her vitals were stable and her oxygen saturation was normal in room air. She is being admitted for evaluation of syncope. Home Medications Scheduled Aspirin (Ecotrin) 81 Mg Tablet.dr, 81 MG PO DAILY, (Reported) Atorvastatin Calcium (Atorvastatin Calcium) 80 Mg Tab, 1 TAB PO DAILY, (Reported) Carvedilol (Carvedilol) 6.25 Mg Tablet, 6.25 MG PO BID, (Reported) Levothyroxine Sodium (Levoxyl) 175 Mcg Tab, 1 TAB PO DAILY, (Reported) Losartan Potassium (Losartan Potassium) 100 Mg Tablet, 100 MG PO DAILY, (Reported) Multivitamin (Multivitamins) 1 Each Capsule, 1 CAP PO DAILY, (Reported) Omeprazole Magnesium (Prilosec Otc) 20 Mg Tablet.dr, 20 MG PO DAILY, (Reported) Sulfasalazine (Sulfasalazine) 500 Mg Tablet, 500 MG PO BID, (Reported) Miscellaneous Medications Hydrochlorothiazide (Hydrochlorothiazide) 12.5 Mg Capsule, (Reported) Allergies Coded Allergies: No Known Allergies (Unverified , 05/17/20) Past Medical History Medical History Hypertension hyperlipidemia, CAD with history of anterolateral ST elevation NJ in 04/2010 with stents placed in LAD , history of ischemic cardiomyopathy which improved after stent placement, ulcerative colitis, rectal r/t colitis, hypothyroid Surgical History Multiple colonoscopies Excision of lipoma from the back Cardiac stent placement Family History Mother of breast cancer at age 69 Father of diabetes hypertension Maternal grandfather of Hodgkin's lymphoma Maternal grandmother of complications of diabetes Social History * Smoker: former Smoker Alcohol: rarely Drugs: denies A-FIB/CHADSVASC A-FIB History Current/History of A-Fib/PAF?: No Review of Systems Constitutional: Reports: Chills, Malaise, Weakness, Fatigue Eyes: Denies: Pain, Vision change ENT: Reports: Head Aches, Sinus Congestion, Sore Throat Skin: Denies: Rash, Lesions, Breakdown Pulmonary: Reports: Cough Cardiovascular: Reports: Lt Headedness; Denies: Chest Pain, Palpitations, Orthopnea, Paroxysmal Noc. Dyspnea Gastrointestinal: Reports: Nausea, Diarrhea Genitourinary: Denies: Dysuria, Frequency, Incontinence, Retention Hematologic: Denies: Bruising, Bleeding Excessively Musculoskeletal: Denies: Neck Pain, Joint Pain, Muscle Pain, Spasms Physical Examination General Exam: Positive: Alert, Cooperative, No Acute Distress Eye Exam: Positive: PERRLA, Conjunctiva & lids normal, EOMI; Negative: Sclera icteric ENT Exam: Positive: Atraumatic, Mucous membr. moist/pink, Pharynx Normal Neck Exam: Positive: Supple; Negative: JVD, thyromegaly Chest Exam: Positive: Clear to auscultation, Normal air movement Heart Exam: Positive: Rate Normal, Regular Rhythm, Normal S1, Normal S2; Negative: Murmurs, Rubs Abdomen Exam: Positive: Normal bowel sounds, Soft; Negative: Tenderness, Hepatospenomegaly Extremity Exam: Positive: Normal pulses; Negative: Clubbing, Cyanosis, Edema Skin Exam: Positive: Nl turgor and temperature; Negative: Breakdown, Lesion Neuro Exam: Positive: Normal Speech, Strength at 5/5 X4 ext, Normal Tone, Cranial Nerves 3-12 NL Psych Exam: Positive: Memory Intact, Oriented x 3 Vital Signs Vital Signs Date Time Temp Pulse Resp B/P (MAP) Pulse Ox O2 Delivery O2 Flow Rate FiO2 05/05/21 15:57 142/86 (104) 05/05/21 15:47 88 93 05/05/21 15:46 16 Room Air Laboratory Data Labs 24H Laboratory Tests 2 05/05/21 12:51: Immature Granulocyte % (Auto) 0.3, Neutrophils (%) (Auto) 86.6H, Lymphocytes (%) (Auto) 9.0L, Monocytes (%) (Auto) 4.0, Eosinophils (%) (Auto) 0.0, Basophils (%) (Auto) 0.1, Neutrophils # (Auto) 5.8, Lymphocytes # (Auto) 0.6L, Monocytes # (Auto) 0.3, Eosinophils # (Auto) 0.0, Basophils # (Auto) 0.0, Nucleated Red Blood Cells % (auto) 0.0, Anion Gap 7L, Glomerular Filtration Rate 44.5L, Calcium Level 8.5L, Magnesium Level 1.5L, Total Creatine Kinase 57, Creatine Kinase MB < 1.0, Creatine Kinase MB Relative Index 1.75, Troponin I < 0.02, Thyroid Stimulating Hormone (TSH) 1.250 05/05/21 14:56: Coronavirus (COVID-19)(PCR) POSITIVEA, Influenza Type A (RT-PCR) NEGATIVE, Influenza Type B (RT-PCR) NEGATIVE, Respiratory Syncytial Virus (PCR) NEGATIVE CBC/BMP Laboratory Tests 05/05/21 12:51 Assessment/Plan 60-year-old female with past medical history of Hypertension hyperlipidemia, coronary artery disease s/p stents, status post [place] in 2009, ulcerative colitis, rectal r/t colitis, hypothyroid presented to the ED for a syncopal episode that happened at home this morning. Patient was walking in her house when suddenly she felt dizzy lightheaded and passed out she fell to the floor hitting her head on the table counter. As soon as she fell to the floor she regained her consciousness. Patient has been sick for 1 week with cough, cold, malaise, weakness, chills and fever and on 05/02/2022 was diagnosed with Covid-19 infection. Patient is unvaccinated. In the ED she was found to be hypomagnesemic which was replaced. Her vitals were stable and her oxygen saturation was normal in room air. She is being admitted for evaluation of syncope. Syncope vasovagal due to viral infection with poor oral intake , malaise and weakness, dehydration. CT head and cervical spine negative will monitor on telemetry check orthostatics will give 1 L fluid check Echo. COVID infection no respiratory compromise, no hypoxia symptomatic management CAD/ s/p stents continue asa, statin and betablocker Hypertension will continue home meds Hyperlipidemia continue statin. Plan / VTE VTE Prophylaxis Ordered?: Yes Paulina Guevara MD May 05, 2021 17:25
[2021-05-05] MEDS ORDERED: MULTTAB61 PO (18:30)
[2021-05-05] MEDS ORDERED: ONDANSETRON 4MG/2ML VIAL IV PRN (18:30)
[2021-05-05] MEDS ORDERED: HOME MED LIST COMPLETE! XX SCH (18:30)
[2021-05-05] MEDS ORDERED: SODIUM CHLORIDE 0.9% 1000ML IV ONE (19:00)
[2021-05-05 19:22] LABS: FERRITIN 129 NG/ML (8-252)
[2021-05-05 19:46] LABS: D-DIMER QUANT 3650.07 ng/ml (<500)
[2021-05-06] VITALS: BP 144/91
[2021-05-06] MEDS ORDERED: LIDOCAINE 5% (LIDODERM) PATCH TD SCH (00:20)
[2021-05-06] MEDS ORDERED: ACETAMINOPHEN TAB 650MG DOSE (2X325MG) PO PRN (00:20)
[2021-05-06 05:44] VITALS: BP 129/89
[2021-05-06] MEDS ORDERED: LEVOTHYROXINE 150MCG TABLET (0.15MG) PO SCH (06:00)
[2021-05-06] MEDS ORDERED: LEVOTHYROXINE 25MCG TABLET (0.025MG) PO SCH (06:00)
--- NOTE | 2021-05-06 06:40 | ECGEPIP ---
[facility] - ED Test Date: 2021-05-05 Pat Name: IKER POLLARD Department: Room: - Gender: Female Stroke Coordinator: CATHY : 1960 Requested By: ANGEL Echols Order Number: [id number] Reading MD: Angel Sorto Measurements Intervals [place] Rate: 78 P: 32 CO: 160 QRS: -7 QRSD: 78 T: 37 QT: 410 QTc: 467 Interpretive Statements Normal sinus rhythm Septal infarct , age undetermined Nonspecific ST-T wave abnormalities Baseline artifact Similar to tracing done 03-08-20 Electronically Signed on 05-06-2021 6:39:35 EDT by Angel Sorto
[2021-05-06 06:48] LABS: HEMATOCRIT 36.1 % (36.0-47.0); MEAN CORPUSCULAR HEMOGLOBIN 34.5 pg (27.0-33.0); MEAN CORPUSCULAR HGB CONC 33.2 g/dl (32.0-36.5); MEAN CORPUSCULAR VOLUME 103.7 fl (80.0-96.0); PLATELET COUNT, AUTOMATED 276 10^3/uL (150-450); RED BLOOD COUNT 3.48 10^6/uL (4.00-5.40); WHITE BLOOD COUNT 3.9 10^3/uL (4.0-10.0)
[2021-05-06 06:59] LABS: INR 0.94
[2021-05-06 07:00] LABS: PARTIAL THROMBOPLASTIN TIME 23.1 SECONDS (25.9-37.0)
[2021-05-06 07:22] LABS: ALBUMIN 2.9 GM/DL (3.2-5.2); BILIRUBIN,TOTAL 0.4 MG/DL (0.2-1.0); CALCIUM LEVEL 8.5 MG/DL (8.8-10.2); CREATININE FOR GFR 1.05 MG/DL (0.55-1.30); GLOMERULAR FILTRATION RATE 56.9 (>45); MAGNESIUM LEVEL 1.9 MG/DL (1.8-2.4); POTASSIUM SERUM 3.3 MEQ/L (3.5-5.1); TOTAL PROTEIN 7.2 GM/DL (6.4-8.2)
[2021-05-06 07:37] VITALS: BP_SYST 115; BP_SYST 123; BP_SYST 125; BP_DIAS 78; BP_DIAS 82; BP_DIAS 88
[2021-05-06] MEDS ORDERED: POTASSIUM CHLORIDE 10MEQ SR TABLET PO ONE (08:00)
[2021-05-06] MEDS ORDERED: **NOTE PATIENT COMMENT** MISC XX SCH (09:00)
[2021-05-06] MEDS ORDERED: OMEPRAZOLE 20 MG CAP PO SCH (09:00)
[2021-05-06] MEDS ORDERED: sulfaSALAzine 500 MG TABEC PO SCH (09:00)
[2021-05-06] MEDS ORDERED: ASPIRIN 81MG ENTERIC TABLET PO SCH (09:00)
[2021-05-06] MEDS ORDERED: ENOXAPARIN 40MG/0.4ML SYRINGE (J1650 PER 10MG) SC SCH (09:00)
[2021-05-06] MEDS ORDERED: ATORVASTATIN 20 MG TAB PO SCH (09:00)
[2021-05-06] MEDS ORDERED: CARVedilol 6.25 MG TAB PO SCH (09:00)
[2021-05-06 09:35] VITALS: BP 115/78
--- NOTE | 2021-05-06 12:18 | DS.PDOC ---
Discharge Summary General Date of Admission May 05, 2021 at 17:08 Date of Discharge May 06, 2021 Discharge Summary PROCEDURES PERFORMED DURING STAY: [None]. DISCHARGE DIAGNOSES: Vasovagal syncope due to viral infection and generalized weakness COVID-19 infection without any respiratory compromise Secondary diagnoses: Hypertension hyperlipidemia, coronary artery disease s/p stents, status post [place] in 2009, ulcerative colitis, rectal r/t colitis, hypothyroid COMPLICATIONS/CHIEF COMPLAINT: Covid 19, Syncope. HOSPITAL COURSE:60-year-old female with past medical history of Hypertension hyperlipidemia, coronary artery disease s/p stents, status post MS in 2009, ulcerative colitis, hypothyroid presented to the ED for a syncopal episode that happened at home this morning. Patient was walking in her house when suddenly she felt dizzy lightheaded and passed out she fell to the floor hitting her head on the table counter. As soon as she fell to the floor she regained her consciousness. Patient has been sick for 1 week with cough, cold, malaise, weakness, chills and fever and on 05/02/2022 was diagnosed with Covid-19 infection. Patient is unvaccinated. In the ED she was found to be hypomagnesemic which was replaced. Her vitals were stable and her oxygen saturation was normal in room air. She is being admitted for evaluation of syncope. Syncope vasovagal due to viral infection with poor oral intake , malaise and weakness, dehydration. CT head and cervical spine negative No cardiac arrhythmias on telemetry Orthostatics are negative Echo done report results are pending. COVID infection no respiratory compromise, no hypoxia symptomatic management of cough CAD/ s/p stents continue asa, statin and betablocker Hypertension will continue . We will hold losartan hydrochlorothiazide for 1 day Hyperlipidemia continue statin. DISCHARGE MEDICATIONS: Please see below. ALLERGIES: Please see below. PHYSICAL EXAMINATION ON DISCHARGE: VITAL SIGNS: Please see below. General Exam: Positive: Alert, Cooperative, No Acute Distress Eye Exam: Positive: PERRLA, Conjunctiva & lids normal, EOMI; Negative: Sclera icteric ENT Exam: Positive: Atraumatic, Mucous membr. moist/pink, Pharynx Normal Neck Exam: Positive: Supple; Negative: JVD, thyromegaly Chest Exam: Positive: Clear to auscultation, Normal air movement Heart Exam: Positive: Rate Normal, Regular Rhythm, Normal S1, Normal S2; Negative: Murmurs, Rubs Abdomen Exam: Positive: Normal bowel sounds, Soft; Negative: Tenderness, Hepatospenomegaly Extremity Exam: Positive: Normal pulses; Negative: Clubbing, Cyanosis, Edema Skin Exam: Positive: Nl turgor and temperature; Negative: Breakdown, Lesion Neuro Exam: Positive: Normal Speech, Strength at 5/5 X4 ext, Normal Tone, Cranial Nerves 3-12 NL Psych Exam: Positive: Memory Intact, Oriented x 3 LABORATORY DATA: Please see below. IMAGING: CT head Brain: No acute intracranial hemorrhage, cerebral edema, or midline shift. Cerebral ventricles: No hydrocephalus. Paranasal sinuses: There is mild mucosal thickening noted within the paranasal sinuses. Mastoid air cells: The mastoid air cells are clear. Orbital cavity: Unremarkable as visualized. Bones/joints: No acute fracture. Soft tissues: Unremarkable. IMPRESSION: No acute intracranial abnormality. Chest x-ray: The technique utilized in obtaining the radiograph has magnified the cardiac silhouette and accentuated the interstitial markings. There is mild cardiomegaly accentuated by technique. The lung saba are clear and stable. The pleural angles are sharp. The osseous structures are stable IMPRESSION: No acute cardiopulmonary disease CT cervical spine: Bones/joints: No acute fracture. Normal alignment. Discs/Spinal canal/Neural foramina: Moderate/severe degenerative changes of the cervical spine are present. There is no severe spinal canal stenosis. Multilevel neural foraminal narrowing from uncinate spurring and facet arthropathy is noted. Lungs: Lung apices are clear. Soft tissues: Unremarkable. IMPRESSION: 1. No acute abnormality. 2. Chronic findings as discussed above ACTIVITY: [As tolerated]. DIET: Regular DISCHARGE PLAN: Home DISPOSITION: . DISCHARGE INSTRUCTIONS: Follow-up with PMD in 1 week Come for monoclonal antibody infusion at the designated time and date ITEMS TO FOLLOWUP ON ON OUTPATIENT: Follow-up oxygen levels 3 times a day, call primary care if oxygen levels is constantly below 90%. Follow-up on echo results DISCHARGE CONDITION: [Stable]. TIME SPENT ON DISCHARGE: 35 minutes. Vital Signs/I&Os Vital Signs Date Time Temp Pulse Resp B/P (MAP) Pulse Ox O2 Delivery O2 Flow Rate FiO2 05/06/21 09:35 96 115/78 05/06/21 05:44 98.8 18 90 Room Air I&O- Last 24 Hours up to 6 AM 05/06/21 06:00 Intake Total 1150 ml Balance 1150 ml Laboratory Data Labs 24H Laboratory Tests 2 05/05/21 12:51: Immature Granulocyte % (Auto) 0.3, Neutrophils (%) (Auto) 86.6H, Lymphocytes (%) (Auto) 9.0L, Monocytes (%) (Auto) 4.0, Eosinophils (%) (Auto) 0.0, Basophils (%) (Auto) 0.1, Neutrophils # (Auto) 5.8, Lymphocytes # (Auto) 0.6L, Monocytes # (Auto) 0.3, Eosinophils # (Auto) 0.0, Basophils # (Auto) 0.0, Nucleated Red Blood Cells % (auto) 0.0, Anion Gap 7L, Glomerular Filtration Rate 44.5L, Calcium Level 8.5L, Magnesium Level 1.5L, Ferritin 129, Total Creatine Kinase 57, Creatine Kinase MB < 1.0, Creatine Kinase MB Relative Index 1.75, Troponin I < 0.02, Thyroid Stimulating Hormone (TSH) 1.250 05/05/21 14:56: Coronavirus (COVID-19)(PCR) POSITIVEA, Influenza Type A (RT-PCR) NEGATIVE, Influenza Type B (RT-PCR) NEGATIVE, Respiratory Syncytial Virus (PCR) NEGATIVE 05/05/21 19:16: Fibrinogen 530H, D-Dimer, Quantitative 3650.07H 05/06/21 06:03: Nucleated Red Blood Cells % (auto) 0.0, Anion Gap 7L, Glomerular Filtration Rate 56.9, Calcium Level 8.5L, Magnesium Level 1.9, Prothrombin Time 13.0, Prothromb Time International Ratio 0.94, Activated Partial Thromboplast Time 23.1L, Total Bilirubin 0.4, Aspartate Amino Transf (AST/SGOT) 30, Alanine Aminotransferase (ALT/SGPT) 36, Alkaline Phosphatase 98, Total Protein 7.2, Albumin 2.9L, Albumin/Globulin Ratio 0.7L CBC/BMP Laboratory Tests 05/05/21 12:51 05/06/21 06:03 Discharge Medications Scheduled Aspirin (Ecotrin) 81 Mg Tablet.dr, 81 MG PO DAILY, (Reported) Atorvastatin Calcium (Atorvastatin Calcium) 80 Mg Tab, 80 MG PO DAILY, (Reported) Carvedilol (Carvedilol) 6.25 Mg Tablet, 6.25 MG PO BID, (Reported) Hydrochlorothiazide (Hydrochlorothiazide) 12.5 Mg Capsule, 12.5 MG PO DAILY, (Reported) Levothyroxine Sodium (Levoxyl) 175 Mcg Tab, 175 MCG PO DAILY, (Reported) Losartan Potassium (Losartan Potassium) 100 Mg Tablet, 100 MG PO DAILY, (Reported) Multivitamin (Multivitamins) 1 Each Tablet, 1 TAB PO DAILY, (Reported) Omeprazole Magnesium (Prilosec Otc) 20 Mg Tablet.dr, 20 MG PO DAILY, (Reported) Sulfasalazine (Sulfasalazine) 500 Mg Tablet, 500 MG PO BID, (Reported) Allergies Coded Allergies: No Known Allergies (Unverified , 05/17/20) Paulina Guevara MD May 06, 2021 12:18
--- NOTE | 2021-05-07 11:33 | ECHO ---
ECHOCARDIOGRAM DATE OF PROCEDURE: 05/06/2021 Age: 60 Gender: Female Height: 65 inches Weight: 175 pounds Body Surface Area: 1.87 m2 PATIENT LOCATION: Inpatient, [address] [place] [address], Room 4107. REFERRING PHYSICIAN: Paulina Guevara M.D. INDICATION: Syncope. Abnormal EKG. MEASUREMENTS: 2D Measurements: RV - 4.1 cm LV - 5.5 cm Septum 1.0 cm Posterior wall 1.1 cm Aortic root 4.2 cm Ascending aorta 4.0 cm LA - 4.1 cm LVEF 40% Doppler Measurements: AV - 1.18 m/sec LVOT - 0.8 m/sec MV-E 59, A 75, EA ratio 0.8 Early mitral deceleration time 187 msec E prime medial 7.4 A prime medial 10 E prime lateral 6.5 Average E/E prime ratio 8.5/PCWP 12.4 mmHg PV - 0.8 m/sec Pulmonary artery acceleration time 84 msec PASP 44 mmHg IVC - 1.6 cm COMMENTS: Normal sinus rhythm without intraventricular conduction disturbance. Technically challenging study in light of the patient's body habitus, but diagnostically useful information was still obtained. M-mode and 2-dimensional cardiography was performed with pulse, continuous wave, color flow and tissue Doppler studies. At least mildly dilated left ventricle with normal wall thickness, but akinesis of the mid and distal anterior wall and dyskinesis of the apex with at least moderate impairment of global resting systolic function. Mildly dilated left atrium with grade 1 left ventricular (LV) diastolic dysfunction, but currently normal mean left atrial pressure. Right heart chamber sizes appear to be at least borderline increased with normal right ventricular free wall motion and Doppler evidence of pulmonary moderate hypertension. Normal inferior vena cava (IVC) size and collapse against an elevated central venous pressure at this time. Mildly dilated aortic root and ascending aorta. Mild aortic valvular sclerosis with adequate cusp separation, but premature cusp closure suggestive of a reduction in forward stroke volume. Slightly thickened mitral valvular apparatus with normal leaflet excursion and no posterior systolic buckling. No more than trace mitral insufficiency. Normal appearing tricuspid valve with very mild insufficiency. Unable to detect an intracardiac mass or pericardial effusion.
== END 2021-05-06 12:48 | disposition home or self-care (01) | DRG 137 ==
LOC: EDBD 12:30 → M ED 12:30 → M ED INP 17:08 → ENRESERV 22:00 → M 4MAIN 05-06
PROVIDERS: ADMIT Internal Medicine Nephrology; ATTEND Internal Medicine Nephrology
DX: U07.1 COVID-19 (principal); E83.42 Hypomagnesemia; I10 Essential (primary) hypertension; I25.10 Atherosclerotic heart disease of native coronary artery without angina pectoris; E78.5 Hyperlipidemia, unspecified; R55 Syncope and collapse; I25.2 Old myocardial infarction; R53.1 Weakness; E86.0 Dehydration; E03.9 Hypothyroidism, unspecified; Z79.82 Long term (current) use of aspirin; Z79.899 Other long term (current) drug therapy; Z87.891 Personal history of nicotine dependence; Z95.5 Presence of coronary angioplasty implant and graft

== ENCOUNTER 2021-05-08 07:36 | Outpatient (CLI) | payer OTHER ==
[~2021-05-08] VITALS: Ht 165.1 cm; Wt 79.5 kg
[~2021-05-08 07:36] MED LIST changes: +ACETAMINOPHEN TAB 650MG DOSE (2X325MG) PO PRN; +ALBUTEROL 90 MCG/ACT 8GM HFA INHALER INH PRN; +ALBUTEROL SULFATE 2.5 MG/0.5 ML INH NEB SOLN INH PRN; +CASIRIVIMAB/IMDEVIMAB 1,200 MG in NS 250 ML IV ONE; +EPINEPHrine INJ 1 MG/ML 1ML AMP IM PRN; +HYDR12CA PO; +LOSA100T50 PO; +MULTTAB61 PO; +NS 1,000 ML IV SCH; +diphenhydrAMINE 50MG/ML VIAL (J1200) IV PRN; +methylPREDNISolone 125MG 2ML VIAL IV PRN
[2021-05-08 08:23] VITALS: BP 127/82
[2021-05-08 08:55] VITALS: BP 126/87
[2021-05-08] MEDS ORDERED: BAMLANIVIMAB 700 MG, ETESEVIMAB 1,400 MG in NS 250 ML IV ONE (09:00)
[2021-05-08 09:27] VITALS: BP 132/87
[2021-05-08 10:25] VITALS: BP 127/91
== END 2021-05-08 10:28 | disposition home or self-care (01) ==
LOC: M OPCLI4PR 07:36
PROVIDERS: ATTEND Internal Medicine Nephrology
DX: U07.1 COVID-19 (principal)

== ENCOUNTER → 2022-01-01 | Outpatient (REF) | payer OTHER ==
[~2022-01-01] MED LIST changes: -ACETAMINOPHEN TAB 650MG DOSE (2X325MG) PO PRN; -ALBUTEROL 90 MCG/ACT 8GM HFA INHALER INH PRN; -ALBUTEROL SULFATE 2.5 MG/0.5 ML INH NEB SOLN INH PRN; -CASIRIVIMAB/IMDEVIMAB 1,200 MG in NS 250 ML IV ONE; -EPINEPHrine INJ 1 MG/ML 1ML AMP IM PRN; +LOSA100T45 PO; -LOSA100T50 PO; +LOSA50TA28 PO; -LOSA50TA88 PO; -NS 1,000 ML IV SCH; +PRED20TA PO; -diphenhydrAMINE 50MG/ML VIAL (J1200) IV PRN; -methylPREDNISolone 125MG 2ML VIAL IV PRN
== END ==
LOC: M LAB REF 13:23
PROVIDERS: ATTEND Internal Medicine Gastroenterology
DX: K51.911 Ulcerative colitis, unspecified with rectal bleeding (principal)

== ENCOUNTER 2022-01-02 11:37 | Emergency (ER) | payer OTHER ==
[~2022-01-02] VITALS: Ht 165.1 cm; Wt 85.0 kg
[~2022-01-02 11:37] MED LIST changes: -PRED20TA PO
[2022-01-02 12:26] LABS: BASO # 0.1 10^3/uL (0.0-0.2); BASO % 0.9 % (0.0-1.0); EOS # 0.7 10^3/uL (0.0-0.5); EOS % 7.6 % (0.0-3.0); HEMATOCRIT 32.9 % (36.0-47.0); HEMOGLOBIN 10.4 g/dl (12.0-15.5); LYMPH # 1.4 10^3/uL (1.5-5.0); LYMPH % 16.4 % (24.0-44.0); MEAN CORPUSCULAR HEMOGLOBIN 29.2 pg (27.0-33.0); MEAN CORPUSCULAR HGB CONC 31.6 g/dl (32.0-36.5); MEAN CORPUSCULAR VOLUME 92.4 fl (80.0-96.0); MONO # 0.8 10^3/uL (0.0-0.8); MONO % 8.7 % (2.0-8.0); NEUTROPHILS # 5.8 10^3/uL (1.5-8.5); NEUTROPHILS % 66.1 % (36.0-66.0); PLATELET COUNT, AUTOMATED 406 10^3/uL (150-450); RED BLOOD COUNT 3.56 10^6/uL (4.00-5.40); WHITE BLOOD COUNT 8.7 10^3/uL (4.0-10.0)
[2022-01-02 12:54] LABS: ALBUMIN 3.5 GM/DL (3.2-5.2); BILIRUBIN,DIRECT 0.2 MG/DL (0.0-0.2); BILIRUBIN,TOTAL 0.6 MG/DL (0.2-1.0); TOTAL PROTEIN 7.7 GM/DL (6.4-8.2)
[2022-01-02] MEDS ORDERED: NS 1,000 ML IV ONE (13:45)
[2022-01-02 16:17] LABS: C REACTIVE PROTEIN QUANTITATIV 3.07 MG/DL (0.00-0.30)
[2022-01-02 16:48] LABS: ERYTHROCYTE SEDIMENTATION RATE 47 mm/hr (0-30)
[2022-01-02 17:50] LABS: RSV AMPLIFICATION NEGATIVE (NEGATIVE)
[2022-01-02 18:25] VITALS: BP 146/90
[2022-01-02] MEDS ORDERED: PRED20TA PO (18:29)
[2022-01-02] MEDS ORDERED: predniSONE 20 MG TAB PO ONE (18:30)
== END 2022-01-02 18:49 | disposition home or self-care (01) ==
LOC: M ED 11:37
DX: K80.20 Calculus of gallbladder without cholecystitis without obstruction (principal); K51.919 Ulcerative colitis, unspecified with unspecified complications; D64.9 Anemia, unspecified; E86.0 Dehydration; N28.1 Cyst of kidney, acquired; R79.89 Other specified abnormal findings of blood chemistry; R74.01 Elevation of levels of liver transaminase levels; I25.10 Atherosclerotic heart disease of native coronary artery without angina pectoris; I10 Essential (primary) hypertension; E78.5 Hyperlipidemia, unspecified; I42.9 Cardiomyopathy, unspecified; E03.9 Hypothyroidism, unspecified; K21.9 Gastro-esophageal reflux disease without esophagitis; F17.200 Nicotine dependence, unspecified, uncomplicated; Z79.899 Other long term (current) drug therapy; Z79.890 Hormone replacement therapy
CPT/HCPCS: 74176; 80047; 80076; 81001; 83690; 85025; 85652; 86140; 87631; 93005; 96360; 96361; 99284; J7512

== ENCOUNTER → 2022-01-04 | Outpatient (CLI) | payer OTHER ==
[~2022-01-04] MED LIST changes: +PRED20TA PO
[2022-01-04 13:24] LABS: ALBUMIN 3.4 GM/DL (3.2-5.2); BILIRUBIN,TOTAL 0.4 MG/DL (0.2-1.0); CALCIUM LEVEL 9.1 MG/DL (8.8-10.2); CREATININE FOR GFR 1.82 MG/DL (0.55-1.30); GLOMERULAR FILTRATION RATE 30.1 (>45); POTASSIUM SERUM 3.6 MEQ/L (3.5-5.1); TOTAL PROTEIN 7.4 GM/DL (6.4-8.2)
== END ==
LOC: M LAB 11:08
PROVIDERS: ATTEND Physician Assistant
DX: R94.5 Abnormal results of liver function studies (principal)

== ENCOUNTER → 2022-03-12 | Outpatient (REF) | payer OTHER ==
[2022-03-13 11:58] LABS: PERCENT SATURATION 8.1 % (13.2-45.0)
== END ==
LOC: M LAB REF 11:14
PROVIDERS: ATTEND Internal Medicine
DX: D64.9 Anemia, unspecified (principal)

== ENCOUNTER → 2022-03-30 | Outpatient (CLI) | payer OTHER | LOC: M RAD 08:38 | PROVIDERS: ATTEND Internal Medicine | DX: N28.1 Cyst of kidney, acquired (principal) ==

== ENCOUNTER → 2022-07-19 | Outpatient (CLI) | payer OTHER | LOC: M LABSMTC 10:08 | PROVIDERS: ATTEND Anesthesiology | DX: Z01.818 Encounter for other preprocedural examination (principal); Z11.52 Encounter for screening for COVID-19 ==

== ENCOUNTER 2022-07-24 09:55 | Day surgery (SDC) | payer OTHER ==
[~2022-07-24] VITALS: Ht 165.1 cm; Wt 85.7 kg
[~2022-07-24 09:55] MED LIST changes: +NS 1,000 ML IV ONE
[2022-07-24] MEDS ORDERED: LIDOCAINE 2% 100MG/5ML SDV (FOR ANES.) As Ordered ONE (12:17)
[2022-07-24] MEDS ORDERED: propofoL 200 MG/20 ML VIAL As Ordered ONE (12:17)
[2022-07-24 12:50] VITALS: BP 138/90
== END 2022-07-24 13:05 | disposition home or self-care (01) ==
LOC: M OPP 09:55
PROVIDERS: ATTEND Internal Medicine Gastroenterology
DX: K51.50 Left sided colitis without complications (principal); K64.8 Other hemorrhoids; I25.10 Atherosclerotic heart disease of native coronary artery without angina pectoris; I25.2 Old myocardial infarction; I10 Essential (primary) hypertension; E78.5 Hyperlipidemia, unspecified; E03.9 Hypothyroidism, unspecified; K21.9 Gastro-esophageal reflux disease without esophagitis; Z95.5 Presence of coronary angioplasty implant and graft; Z87.891 Personal history of nicotine dependence; Z79.82 Long term (current) use of aspirin; Z79.890 Hormone replacement therapy; Z79.899 Other long term (current) drug therapy; Z80.3 Family history of malignant neoplasm of breast; Z80.0 Family history of malignant neoplasm of digestive organs

== ENCOUNTER → 2022-09-25 | Outpatient (REF) | payer OTHER ==
[~2022-09-25] MED LIST changes: -NS 1,000 ML IV ONE
[2022-09-25 17:38] LABS: FERRITIN 15.8 NG/ML (7.3-270.7); PERCENT SATURATION 4.2 % (13.2-45.0)
== END ==
LOC: M LAB REF 16:23
PROVIDERS: ATTEND Internal Medicine
DX: D50.9 Iron deficiency anemia, unspecified (principal)

== ENCOUNTER → 2022-09-28 | Outpatient (CLI) | payer OTHER | LOC: M WHC 07:42 | PROVIDERS: ATTEND Internal Medicine | DX: N17.9 Acute kidney failure, unspecified (principal) ==

== ENCOUNTER → 2023-02-28 | Outpatient (REF) | payer OTHER ==
[~2023-02-28] MED LIST changes: -LOSA100T45 PO; +LOSA100T46 PO
[2023-02-28 14:14] LABS: CLOSTRIDIUM DIFFICILE PCR NEGATIVE (NEGATIVE)
== END ==
LOC: M LAB REF 12:55
PROVIDERS: ATTEND Internal Medicine Gastroenterology
DX: K51.911 Ulcerative colitis, unspecified with rectal bleeding (principal)

== ENCOUNTER → 2023-03-25 | Outpatient (REF) | payer OTHER | LOC: M LAB REF 15:50 | PROVIDERS: ATTEND Student in an Organized Health Care Education/Training Program | DX: K51.90 Ulcerative colitis, unspecified, without complications (principal) ==

== ENCOUNTER → 2023-04-05 | Outpatient (CLI) | payer OTHER ==
[~2023-04-05] MED LIST changes: +GASTROGRAFIN SOLUTION 30ML As Ordered ONE; +ISOVUE-370 76% 100ML VIAL As Ordered ONE
== END ==
LOC: M RAD 13:23
PROVIDERS: ATTEND Student in an Organized Health Care Education/Training Program
DX: K51.90 Ulcerative colitis, unspecified, without complications (principal); R79.82 Elevated C-reactive protein (CRP); R93.5 Abnormal findings on diagnostic imaging of other abdominal regions, including retroperitoneum
CPT/HCPCS: 74177; Q9963; Q9967

== ENCOUNTER → 2023-05-24 | Outpatient (CLI) | payer OTHER ==
[~2023-05-24] MED LIST changes: -GASTROGRAFIN SOLUTION 30ML As Ordered ONE; -ISOVUE-370 76% 100ML VIAL As Ordered ONE
[2023-05-24 10:48] LABS: BASO # 0.1 10^3/uL (0.0-0.2); BASO % 0.6 % (0.0-1.0); EOS # 0.2 10^3/uL (0.0-0.5); EOS % 1.5 % (0.0-3.0); HEMATOCRIT 28.9 % (36.0-47.0); HEMOGLOBIN 8.4 g/dl (12.0-15.5); LYMPH # 2.9 10^3/uL (1.5-5.0); LYMPH % 29.4 % (24.0-44.0); MEAN CORPUSCULAR HEMOGLOBIN 23.5 pg (27.0-33.0); MEAN CORPUSCULAR HGB CONC 29.1 g/dl (32.0-36.5); MONO # 0.9 10^3/uL (0.0-0.8); NEUTROPHILS # 5.8 10^3/uL (1.5-8.5); NEUTROPHILS % 57.8 % (36.0-66.0); PLATELET COUNT, AUTOMATED 573 10^3/uL (150-450); RED BLOOD COUNT 3.57 10^6/uL (4.00-5.40)
[2023-05-24 11:02] LABS: ERYTHROCYTE SEDIMENTATION RATE 101 mm/hr (0-30)
== END ==
LOC: M LAB 09:58
PROVIDERS: ATTEND Student in an Organized Health Care Education/Training Program
DX: K51.90 Ulcerative colitis, unspecified, without complications (principal)

== ENCOUNTER → 2023-06-28 | Outpatient (CLI) | payer OTHER | LOC: M RAD 12:28 | PROVIDERS: ATTEND Nurse Practitioner Family | DX: Z12.2 Encounter for screening for malignant neoplasm of respiratory organs (principal); F17.211 Nicotine dependence, cigarettes, in remission ==

== ENCOUNTER → 2023-07-02 | Outpatient (CLI) | payer OTHER ==
[2023-07-02 14:19] LABS: BASO # 0.1 10^3/uL (0.0-0.2); BASO % 0.6 % (0.0-1.0); EOS # 0.3 10^3/uL (0.0-0.5); EOS % 3.8 % (0.0-3.0); HEMATOCRIT 38.2 % (36.0-47.0); HEMOGLOBIN 12.2 g/dl (12.0-15.5); LYMPH # 1.1 10^3/uL (1.5-5.0); LYMPH % 14.1 % (24.0-44.0); MEAN CORPUSCULAR HGB CONC 31.9 g/dl (32.0-36.5); MONO # 0.7 10^3/uL (0.0-0.8); MONO % 9.3 % (2.0-8.0); NEUTROPHILS # 5.6 10^3/uL (1.5-8.5); NEUTROPHILS % 71.9 % (36.0-66.0); PLATELET COUNT, AUTOMATED 351 10^3/uL (150-450); WHITE BLOOD COUNT 7.7 10^3/uL (4.0-10.0)
[2023-07-02 14:22] LABS: FREE T4 1.73 NG/DL (0.89-1.76); THYROID STIMULATING HORMONE 0.012 uIU/ML (0.55-4.78)
[2023-07-02 14:24] LABS: FERRITIN 24.1 NG/ML (7.3-270.7)
[2023-07-02 14:32] LABS: VITAMIN B12 LEVEL > 2000 PG/ML (211-911)
== END ==
LOC: M PLALAB 09:17
PROVIDERS: ATTEND Internal Medicine Hematology
DX: E61.1 Iron deficiency (principal); E03.9 Hypothyroidism, unspecified

== ENCOUNTER → 2023-07-05 | Outpatient (CLI) | payer OTHER ==
[~2023-07-05] VITALS: Ht 165.1 cm; Wt 79.5 kg
[~2023-07-05] MED LIST changes: +ALBUTEROL SULFATE 2.5MG/0.5ML INH NEB SOLN INH PRN; +EPINEPHrine INJ 1 MG/ML 1ML AMP IM PRN; +IRON SUCROSE 200 MG in NS 100 ML IV ONE; +NS 1,000 ML IV SCH; +diphenhydrAMINE 50MG/ML VIAL IV PRN; +methylPREDNISolone 125MG 2ML VIAL IV PRN
[2023-07-05 08:52] VITALS: BP 163/96; O2SAT 97
[2023-07-05 10:04] VITALS: BP 138/88; O2SAT 98
== END ==
LOC: M INFU 08:00
PROVIDERS: ATTEND Internal Medicine Hematology
DX: D50.9 Iron deficiency anemia, unspecified (principal)
CPT/HCPCS: 96365; J1756

== ENCOUNTER → 2024-01-01 | Outpatient (CLI) | payer OTHER ==
[~2024-01-01] MED LIST changes: -ALBUTEROL SULFATE 2.5MG/0.5ML INH NEB SOLN INH PRN; +APRI0.37 PO; +BUPR-69 PO; +CARV12.5 PO; -EPINEPHrine INJ 1 MG/ML 1ML AMP IM PRN; +FERR325T3 PO; +HYDR-3490 PO; -IRON SUCROSE 200 MG in NS 100 ML IV ONE; -NS 1,000 ML IV SCH; -diphenhydrAMINE 50MG/ML VIAL IV PRN; -methylPREDNISolone 125MG 2ML VIAL IV PRN
[2024-01-01 12:40] LABS: FREE T4 1.51 NG/DL (0.89-1.76); THYROID STIMULATING HORMONE 0.019 uIU/ML (0.55-4.78)
[2024-01-01 12:42] LABS: FREE T3 3.2 PG/ML (2.3-4.2)
== END ==
LOC: M LAB 11:22
PROVIDERS: ATTEND Nurse Practitioner Family
DX: I10 Essential (primary) hypertension (principal); E03.9 Hypothyroidism, unspecified; E78.5 Hyperlipidemia, unspecified; F17.210 Nicotine dependence, cigarettes, uncomplicated; K51.90 Ulcerative colitis, unspecified, without complications

== ENCOUNTER → 2024-01-27 | Outpatient (CLI) | payer OTHER | LOC: M WHC 09:27 | PROVIDERS: ATTEND Nurse Practitioner Family | DX: Z12.31 Encounter for screening mammogram for malignant neoplasm of breast (principal) ==

== ENCOUNTER → 2024-03-17 | Outpatient (CLI) | payer OTHER ==
[~2024-03-17] MED LIST changes: +LEVO125T4 PO
[2024-03-17 11:54] LABS: HEMATOCRIT 40.2 % (36.0-47.0); HEMOGLOBIN 13.9 g/dl (12.0-15.5); MEAN CORPUSCULAR HEMOGLOBIN 35.3 pg (27.0-33.0); MEAN CORPUSCULAR HGB CONC 34.6 g/dl (32.0-36.5); PLATELET COUNT, AUTOMATED 255 10^3/uL (150-450); RED BLOOD COUNT 3.94 10^6/uL (4.00-5.40); WHITE BLOOD COUNT 6.3 10^3/uL (4.0-10.0)
[2024-03-17 12:04] LABS: ERYTHROCYTE SEDIMENTATION RATE 44 mm/hr (0-30)
[2024-03-17 12:28] LABS: C REACTIVE PROTEIN QUANTITATIV < 0.40 MG/DL (<1.0)
[2024-03-17 12:45] LABS: ALBUMIN 4.2 G/DL (3.2-5.2); ALKALINE PHOSPHATASE 108 U/L (46-116); ALT/SGPT 70 U/L (7.0-40); AST/SGOT 42 U/L (<34); BILIRUBIN,TOTAL 0.8 MG/DL (0.3-1.2); BLOOD UREA NITROGEN 22 MG/DL (9-23); CALCIUM LEVEL 9.5 MG/DL (8.3-10.6); CARBON DIOXIDE LEVEL 23 MMOL/L (20-31); CHLORIDE LEVEL 97 MMOL/L (98-107); CREATININE FOR GFR 0.88 MG/DL (0.55-1.30); GLOMERULAR FILTRATION RATE > 60.0 (>45); GLUCOSE, FASTING 92 MG/DL (74-106); POTASSIUM SERUM 4.4 MMOL/L (3.5-5.1); SODIUM LEVEL 130 MMOL/L (136-145); TOTAL PROTEIN 8.3 G/DL (5.7-8.2)
== END ==
LOC: M LAB 11:17
PROVIDERS: ATTEND Student in an Organized Health Care Education/Training Program
DX: K51.90 Ulcerative colitis, unspecified, without complications (principal)

== ENCOUNTER → 2024-05-01 | Outpatient (CLI) | payer OTHER | LOC: M RAD 09:34 | PROVIDERS: ATTEND Student in an Organized Health Care Education/Training Program | DX: R74.01 Elevation of levels of liver transaminase levels (principal) ==

== ENCOUNTER → 2024-06-01 | Outpatient (CLI) | payer OTHER ==
[2024-06-01 13:33] LABS: HEMATOCRIT 37.7 % (36.0-47.0); MEAN CORPUSCULAR HEMOGLOBIN 35.7 pg (27.0-33.0); MEAN CORPUSCULAR HGB CONC 34.5 g/dl (32.0-36.5); MEAN CORPUSCULAR VOLUME 103.6 fl (80.0-96.0); PLATELET COUNT, AUTOMATED 292 10^3/uL (150-450); RED BLOOD COUNT 3.64 10^6/uL (4.00-5.40); WHITE BLOOD COUNT 5.9 10^3/uL (4.0-10.0)
[2024-06-01 13:46] LABS: C REACTIVE PROTEIN QUANTITATIV < 0.40 MG/DL (<1.0); ERYTHROCYTE SEDIMENTATION RATE 38 mm/hr (0-30)
[2024-06-01 13:48] LABS: ALBUMIN 3.9 G/DL (3.2-5.2); ALKALINE PHOSPHATASE 91 U/L (35-104); ALT/SGPT 71 U/L (7.0-40); AST/SGOT 44 U/L (<34); BILIRUBIN,TOTAL 0.7 MG/DL (0.3-1.2); BLOOD UREA NITROGEN 24 MG/DL (9-23); CALCIUM LEVEL 9.4 MG/DL (8.3-10.6); CARBON DIOXIDE LEVEL 25 MMOL/L (20-31); CHLORIDE LEVEL 97 MMOL/L (98-107); CREATININE FOR GFR 0.89 MG/DL (0.55-1.30); GLOMERULAR FILTRATION RATE > 60.0 (>45); GLUCOSE, FASTING 97 MG/DL (74-106); POTASSIUM SERUM 3.5 MMOL/L (3.5-5.1); SODIUM LEVEL 131 MMOL/L (136-145); TOTAL PROTEIN 7.9 G/DL (5.7-8.2)
[2024-06-01 14:22] LABS: HEPATITIS B CORE ANTIBODY IGM NEGATIVE (NEGATIVE)
== END ==
LOC: M LAB 11:30
PROVIDERS: ATTEND Student in an Organized Health Care Education/Training Program
DX: K51.90 Ulcerative colitis, unspecified, without complications (principal)

== ENCOUNTER → 2024-08-03 | Outpatient (CLI) | payer OTHER | LOC: M RAD 08:42 | PROVIDERS: ATTEND Nurse Practitioner Family | DX: F17.211 Nicotine dependence, cigarettes, in remission (principal); J98.11 Atelectasis; J47.9 Bronchiectasis, uncomplicated; I25.10 Atherosclerotic heart disease of native coronary artery without angina pectoris; I77.810 Thoracic aortic ectasia; K44.9 Diaphragmatic hernia without obstruction or gangrene ==

== ENCOUNTER → 2024-08-13 | Outpatient (REF) | payer OTHER ==
[2024-08-13 09:32] LABS: FREE T4 2.02 NG/DL (0.89-1.76); THYROID STIMULATING HORMONE 0.309 uIU/ML (0.55-4.78); THYROXINE (T4) 8.9 UG/DL (4.5-10.9)
[2024-08-13 09:34] LABS: FREE T3 3.4 PG/ML (2.3-4.2)
== END ==
LOC: M LAB REF 08:43
PROVIDERS: ATTEND Nurse Practitioner Family
DX: E03.9 Hypothyroidism, unspecified (principal)

== ENCOUNTER → 2025-01-20 | Outpatient (CLI) | payer OTHER ==
[2025-01-20 12:29] LABS: PLATELET COUNT, AUTOMATED 274 10^3/uL (150-450)
[2025-01-20 12:35] LABS: ERYTHROCYTE SEDIMENTATION RATE 52 mm/hr (0-30)
[2025-01-20 13:05] LABS: TOTAL 25(OH) VITAMIN D 55.8 NG/ML (20.0-100.0)
[2025-01-20 13:07] LABS: ALT/SGPT 54 U/L (7.0-40); AST/SGOT 44 U/L (<34); C REACTIVE PROTEIN QUANTITATIV < 0.50 MG/DL (<1.0); CALCIUM LEVEL 9.6 MG/DL (8.3-10.6); CARBON DIOXIDE LEVEL 22 MMOL/L (20-31); CHLORIDE LEVEL 95 MMOL/L (98-107); CREATININE FOR GFR 0.88 MG/DL (0.55-1.30); GLOMERULAR FILTRATION RATE 73.3 (>45); POTASSIUM SERUM 3.8 MMOL/L (3.5-5.1); SODIUM LEVEL 131 MMOL/L (136-145)
[2025-01-20 13:09] LABS: VITAMIN B12 LEVEL > 2000 PG/ML (211-911)
== END ==
LOC: M LAB 11:39
PROVIDERS: ATTEND Student in an Organized Health Care Education/Training Program
DX: K51.90 Ulcerative colitis, unspecified, without complications (principal)

== ENCOUNTER → 2025-04-05 | Outpatient (CLI) | payer OTHER ==
[~2025-04-05] MED LIST changes: +HYDR12.510 PO; -HYDR12CA PO
[2025-04-05 12:54] LABS: PLATELET COUNT, AUTOMATED 262 10^3/uL (150-450)
[2025-04-05 13:14] LABS: ALT/SGPT 28 U/L (7.0-40); AST/SGOT 25 U/L (<34); C REACTIVE PROTEIN QUANTITATIV < 0.50 MG/DL (<1.0); CALCIUM LEVEL 8.9 MG/DL (8.3-10.6); CARBON DIOXIDE LEVEL 25 MMOL/L (20-31); CHLORIDE LEVEL 100 MMOL/L (98-107); CREATININE FOR GFR 1.07 MG/DL (0.55-1.30); GLOMERULAR FILTRATION RATE 58.0 (>45); POTASSIUM SERUM 3.6 MMOL/L (3.5-5.1); SODIUM LEVEL 133 MMOL/L (136-145)
[2025-04-05 13:22] LABS: ERYTHROCYTE SEDIMENTATION RATE 63 mm/hr (0-30)
== END ==
LOC: M LAB 10:28
PROVIDERS: ATTEND Student in an Organized Health Care Education/Training Program
DX: K51.90 Ulcerative colitis, unspecified, without complications (principal)

== ENCOUNTER → 2025-04-09 | Outpatient (CLI) | payer OTHER | LOC: M WHC 08:56 | PROVIDERS: ATTEND Nurse Practitioner Family | DX: Z12.39 Encounter for other screening for malignant neoplasm of breast (principal); R92.8 Other abnormal and inconclusive findings on diagnostic imaging of breast; R92.30 Dense breasts, unspecified ==

== ENCOUNTER → 2025-04-27 | Outpatient (CLI) | payer OTHER | LOC: M WHC 13:04 | PROVIDERS: ATTEND Nurse Practitioner Family | DX: N63.0 Unspecified lump in unspecified breast (principal) ==